=== PATIENT | male | born 1945 | race Caucasian/White ===

== ENCOUNTER 2020-03-23 14:21 | Emergency (ER) | payer MEDICARE, SELFPAY ==
[2020-03-23 14:43] VITALS: BP 100/80; BP 135/79; PULSE 96; RESP 16; TEMP 36.8; O2SAT 99; BMI 26.4
--- NOTE | 2020-03-23 14:50 | XR_ITS ---
EXAMINATION: XR CHEST CLINICAL INFORMATION: Fall, trauma, pain COMPARISON: None TECHNIQUE: 2 views of the chest were obtained. FINDINGS: The lungs are clear. There is no pneumothorax, pleural reaction, airspace consolidation, or effusion. The costophrenic sulci are well-defined. The heart is normal in size. The hilar and mediastinal contours and visualized bony structures are unremarkable. XR/XR chest 2V IMPRESSION: Unremarkable examination.
--- NOTE | 2020-03-23 14:50 | CT_ITS ---
EXAMINATION: CT BRAIN, CT CERVICAL SPINE AND CT FACIAL BONES WITHOUT CONTRAST. CLINICAL INFORMATION: Fall. COMPARISON: None TECHNIQUE: 5 mm thin axial and reformatted 2 mm thin sagittal and coronal images of brain were obtained. 3 mm thin axial and reformatted 1.5 mm thin sagittal and coronal images of facial bones were obtained. 3 mm thin axial and 2 mm thin sagittal and coronal images of cervical spine were obtained. DLP [id number] FINDINGS: Brain: There is no acute intra-axial, extra-axial bleed, masses or midline shift. There is no acute infarction in evolution. The lateral ventricles are symmetrical in size but are mildly prominent. The great to white matter differentiation is maintained. Bone windows reveal no calvarial abnormality. Bilateral paranasal sinuses and mastoid air cells are well-aerated. Facial bones: There is no maxillofacial, nasal or mandibular bone fractures seen. Bilateral TM joints and visualized mandible appears intact. The bony arredondo of paranasal sinuses are intact. The maxillofacial and nasal soft tissues are normal. The bony orbits are intact. There is mild deviation right lamina papyracea inward chest from old injury. Cervical spine: There is mild reversal of cervical lordosis. The vertebral heights and alignment is normal. There is loss of C5-C6 disc height with ventral and posterior spondylosis. There is mild C1-C2 superior spurring as well. The craniovertebral junction is normal. No acute fracture, lytic or sclerotic process seen. CT/CT cervical spine wo con IMPRESSION: No acute intracranial process seen. Age-related cerebral volume loss with chronic small vessel ischemic changes. There is no acute maxillofacial and nasal bone fracture. There is deformity of right lamina papyracea likely old injury. The sinuses are well-aerated and clear. There is no acute fracture or dislocation of cervical spine. There are degenerative disc changes C5-C6 disc level with ventral and posterior spondylosis. There is reversal of cervical lordosis likely spasm..
--- NOTE | 2020-03-23 14:52 | PC.NURSE ---
pt arrives via ems after mechanical fall at home, slipped on floor at top of stairs, down 3-4 steps. pt remembers event, denies having experienced dizziness, sob, chest pain prior to fall. denies LOC. did not relaize he had a lac until after he drove himself from home to nephrology appt. slightly hypotensive with them, all bps wnl with ems and upon arrival. NSR oncardiac monitor. a&ox3, hx parkinsons. speech clear, slightly slowed, visible tremor to R hand. skin pwd, resp even and nonlaboured. PA to bedside. plan to scan head, xrays as well. pt aware of plan for care.
--- NOTE | 2020-03-23 15:18 | PC.NURSE ---
val [phone] DAUGHTER. will be picking him up
--- NOTE | 2020-03-23 15:47 | PC.NURSE ---
PT RETURNED FROM CT CAN WITH NO ISSUES. AWARE OF PLAN FOR CARE.
[2020-03-23] MEDS: Lidocaine HCl 2 % MPF 5 ML VIAL INFILTRATI (16:09)
--- NOTE | 2020-03-23 16:19 | ED_ITS ---
HPI - Fall General Chief Complaint: Fall Stated Complaint: FALL DOWN STEPS,HEAD LAC,+COLLAR,-THINNERS Time Seen by Provider: 03/23/20 16:03 Source: patient Mode of arrival: EMS Limitations: no limitations History of Present Illness HPI Narrative: Patient presents to ED for left forehead laceration. Patient states this morning he was going down 3 stairs and he slipped which caused him to trip and fell onto his left head. Patient denies any dizziness, slurred speech, loss of vision, paralysis of extremities, facial droop, headache, chest pain, abdominal pain, shortness of breath, or weakness before falling. Patient states the stairs were slippery. Patient states he only fell down 3 stairs. Patient denies falling on chest, abdomen, back, or neck. Patient denies any loss of consciousness. Patient states since then no headache, dizziness, nausea, vomiting, blood in stool, vomiting blood, or bloody urine. Patient wanted a director of hotel for follow-up appointment and they noticed left eyebrow laceration, and than they sent him to the ED. Patient states he was aware of laceration, but did not think it needed to be sutured. patient denies loss of consciousness. Related Data Allergies Allergy/AdvReac Type Severity Reaction Status Date / Time No Known Allergies Allergy Verified 03/23/20 14:42 Review of Systems Review of Systems: Yes all other systems are reviewed and are negative Constitutional: Constitutional: Denies anorexia, Denies body ache(s), Denies chills, Denies frequent falls and Denies headache(s) Eyes: Eyes: Reports as per HPI and Reports no additional eye complaints ENT: Reports system reviewed and no additional complaints, except as documented, Reports as per HPI, Denies vertigo, Denies dizziness, Denies dry mouth, Denies headache(s), Denies lip swelling, Denies epistaxis and Denies neck pain Cardiovascular: Cardiovascular: Reports as per HPI, Reports no additional cardiovascular complaints, Denies Abdominal Cramping after Meds, Denies chest pain, Denies chest pain at rest, Denies chest pain with activity, Denies pedal edema, Denies dyspnea on exertion, Denies orthopnea and Denies paroxysmal nocturnal dyspnea Respiratory: Respiratory: Reports as per HPI, Reports no additional respiratory complaints, Denies change in phlegm color, Denies chest congestion, Denies cough, Denies pain on inspiration, Denies pain with cough and Denies dyspnea on exertion Gastrointestinal: Gastrointestinal: Reports as per HPI, Reports no additional gastrointestinal complaints, Denies abdominal pain, Denies belching, Denies melena, Denies hematochezia, Denies tenesmus, Denies change in stool character, Denies coffee ground emesis, Denies GI cramping, Denies early satiety, Denies dyspepsia, Denies heartburn, Denies fecal incontinence, Denies diarrhea, Denies vomiting and Denies hematemesis Genitourinary: Genitourinary: Denies dysuria, Denies flank pain, Denies urinary frequency, Denies urinary incontinence and Denies urinary urgency Musculoskeletal: Musculoskeletal: Reports no additional musculoskeletal complaints, Reports as per HPI, Denies abnormal gait, Denies back pain, Denies myalgias, Denies atrophy, Denies deformity, Denies joint swelling, Denies limited range of motion, Denies loss of height, Denies muscle cramps, Denies muscle weakness, Denies neck pain and Denies numbness Neurologic: Reports system reviewed and no additional complaints, except as documented, Reports as per HPI, Denies abnormal gait, Denies behavioral changes, Denies vertigo, Denies dizziness, Denies frequent falls, Denies headache(s) and Denies numbness Psychiatric: Psychiatric: Reports no additional psychiatric complaints, Reports as per HPI, Denies abnormal sleep pattern, Denies anxiety, Denies behavioral changes, Denies change in appetite and Denies irritability Allergic/Immunologic: Allergic/Immunologic: Denies lip swelling PMFSH Past Medical History Medical History (Updated 03/23/20 @ 17:31 by RACHID Choudhary) Hypertension Parkinson disease Social History Social History Smoking Status: Never smoker Use of substances other than those prescribed or required for medical reasons: No Advance Directives: No Advance Directives Information Provided: No Physical Exam Vital Signs: Vital Signs: Vital Signs Temp Pulse Resp BP Pulse Ox 03/23/20 17:09 97.9 F 83 16 140/80 H 98 03/23/20 14:43 98.3 F 96 16 135/79 99 Body Mass Index 26.4 Const: General: cooperative, healthy appearing, comfortable, no acute distress, well developed, alert and awake Orientation/consciousness: oriented to person, oriented to place, oriented to time and patient oriented x3 HENMT: Other: Positive for left maxillary facial abrasion. Head: Yes normal to inspection, Yes No palpable skull fracture present, No Chávez's sign, No contusion, No cranial bruits, No hematoma, Yes laceration ( Positive for left forehead laceration near Eyebrow), No palpable skull fracture, No raccoon eyes, No scalp tenderness, No Temporal artery tenderness present and No perior bital ecchymosis Ears: hearing grossly normal bilaterally General nose exam: Normal external nose present Face and sinus: Yes normal facial exam Mouth: Normal oral and palatal mucosa present Teeth and gingiva: dentition normal Eyes: General: appearance normal, both eyes and all related structures Neck: Neck: Yes normal visual inspection, Yes full ROM, Yes no lymphadenopathy, Yes no meningeal signs and No tender Chest: Other: negative for any ecchymosis or crepitus. Negative for tenderness Chest palpation & inspection: normal inspection of the chest, normal palpation of entire chest wall and no localized rib tenderness Resp: Effort & Inspection: normal respiratory effort, able to speak in complete sentences, no audible wheezes and no cough Auscultation: clear to auscultation bilaterally, no crackles, no rales, no rhonchi and no wheezes Percussion: percussion normal Cardio: Jugular venous distension: no JVD Heart sounds: S1 normal heart sound present and S2 normal heart sound present GI: Other: negative for any abdominal tenderness or ecchymosis. Bedside fast ultrasound negative for any free fluid to indicate bleeding. Inspection: Yes normal to inspection, No abdominal wall ecchymosis and No distended Palpation (GI): Soft to palpation, not firm, nontender, no guarding and not rigid : General: No CVA tenderness and Yes no CVA tenderness Back/Spine/Pelvis: Other: Negative ecchymosis/tenderness Back: no CVA tenderness, No CVA tenderness and No back tenderness Skin: General skin exam: no rashes or lesions noted Neuro: General: oriented to person, oriented to place, oriented to time, patient oriented x3, gait normal ( gait is at baseline. Patient has Parkinson's), no meningeal signs and CN's II-XI intact bilaterally Extrem: Other: patient has complete range of motion of all extremities. Lower extremities negative for any internal/ external rotation to indicate hip fracture dislocation. Patient able to flex and extend lower extremity without any pain or difficulty. General: Yes normal to inspection and Yes full ROM Psych: Appearance: grossly normal, well kempt and not disheveled Course Reevaluation(s) Reevaluation #1: Presently no labs are indicated. History indicates mechanical fall. Patient was asked multiple times any dizziness, chest pain, headache, abdominal pain, stroke symptoms, or weakness before falling, and patient denied all the symptoms. No medical workup indicated. Patient will be sent for head CT, C-spine, facial CT, and chest x-ray. Time: 16:28 Reevaluation #2: patient head CT, C-spine CT, facial CT, and chest x-ray ne gative for any brain bleed, skull fracture, neck fracture, or any new most /hemothorax or rib fractures. Laceration repaired. Patient then was again Asked any dizziness, headache, chest pain, weakness, abdominal pain, nausea, stroke symptoms, vomiting before falling and patient denies those symptoms. Patient states he just slipped which caused him to trip and fall. Presently no labs or medical workup indicated. patient has tremors at baseline due to Parkinson's disease. Patient is not altered. Patient is alert oriented x3. Negative for any focal deficits Time: 17:19 Procedures Laceration Laceration 1: Site: face ( Left eyebrow) Side (If applicable): left Size (cm): 3 Description: irregular Depth: simple, single layer Local Anesthetic: lidocaine 2% Amount of anesthesia used (mL): 4 Skin layer closed with: nylon Size (cm): 4-0 Number of sutures: 4 MDM - Fall MDM Narrative Medical decision making narrative: mechanical fall. Laceration repair. Discharge Plan Discharge Clinical Impression: Eyebrow laceration, Head injury, acute Patient Disposition: Home, Self-Care Instructions: Head Injury (ED), Facial Laceration (ED) Additional Instructions: Return to the ED for any chest pain, shortness of breath, dizziness, weakness, headache, slurred speech, loss of vision, rectal bleeding, vomiting blood, blood in urine, or any other concerning symptoms. Sutures should be removed in 6 days at PCP or ED. Print Language: Trinidadian
[2020-03-23 17:09] VITALS: BP 140/80; PULSE 83; RESP 16; TEMP 36.6; O2SAT 98
== END 2020-03-23 18:10 | disposition home or self-care (01) ==
PROVIDERS: Emergency Provider Internal Medicine
DX: S01.112A Laceration without foreign body of left eyelid and periocular area, initial encounter (principal); H57.12 Ocular pain, left eye; M94.0 Chondrocostal junction syndrome [Tietze]; W10.9XXA Fall (on) (from) unspecified stairs and steps, initial encounter; Y93.01 Activity, walking, marching and hiking; Y92.9 Unspecified place or not applicable; Y99.9 Unspecified external cause status; Z79.899 Other long term (current) drug therapy; Z23 Encounter for immunization
CPT/HCPCS: 12013; 70450; 70486; 71046; 72125; 90471; 90715; 99284

== ENCOUNTER 2021-05-02 08:12 | Emergency (ER) | payer MEDICARE, SELFPAY ==
--- NOTE | ~2021-05-02 | CT_ITS ---
EXAMINATION: CT CERVICAL SPINE WITHOUT CONTRAST CLINICAL INFORMATION: Fall. Neck injury. COMPARISON: Previous CT of the cervical spine 03/23/2020 TECHNIQUE: Axial images through the cervical spine without contrast. Sagittal and coronal reconstructions on the technologist workstation were performed. Patient dose 305 mCi per centimeter. This CT examination was performed using dose optimization techniques as appropriate, variously including the following: *Automated exposure control *Adjustment of mA and/or kV according to patient size (this includes techniques or standardized protocols for targeted exams where dose is matched to indication/reason for exam; i.e. extremities or head) *Use of iterative reconstruction technique DLP: 305 mGy-cm FINDINGS: There is increased lower cervical and upper thoracic kyphosis. Bone alignment is otherwise normal. There is degenerative disc disease and degenerative spondylosis at C5-C6 and C6-C7. There are degenerative changes at the C1 dens articulation. Prevertebral soft tissues are normal. Visualized lung apices are clear. CT/CT cervical spine wo con IMPRESSION: Increased lower cervical and upper thoracic kyphosis similar to previous exam. Degenerative changes. No fracture or dislocation. Fleischner guidelines were followed.
--- NOTE | ~2021-05-02 | CT_ITS ---
EXAMINATION: CT HEAD WITHOUT CONTRAST CLINICAL INFORMATION: Fall. Head injury. COMPARISON: Previous head CT February 2020 TECHNIQUE: Contiguous axial imaging was performed from the skull base to vertex without intravenous administration of contrast. This CT examination was performed using dose optimization techniques as appropriate, variously including the following: *Automated exposure control *Adjustment of mA and/or kV according to patient size (this includes techniques or standardized protocols for targeted exams where dose is matched to indication/reason for exam; i.e. extremities or head) *Use of iterative reconstruction technique DLP: 750 mGy-cm FINDINGS: There is no evidence of an extra-axial collection. There is no evidence of intra-axial extra-axial hemorrhage. The ventricles and extra-axial CSF spaces are prominent suggestive of mild generalized atrophy. There is nonspecific periventricular white matter disease. No mass, mass effect or infarct is seen. Review of bone windows is normal. No skull fracture is seen. Visualized paranasal sinuses, mastoid air cells and middle ears are clear. There is soft tissue swelling and air in soft tissues overlying the right parietal bone. CT/CT head/brain wo con IMPRESSION: No acute findings. Mild generalized atrophy and nonspecific periventricular white matter disease. Soft tissue swelling and small amount of air in the soft tissues overlying the right parietal bone.
--- NOTE | ~2021-05-02 | XR_ITS ---
EXAMINATION: RIGHT HAND AND WRIST X-RAY CLINICAL INFORMATION: Trauma. Pain and swelling. COMPARISON: None TECHNIQUE: 4 views of the right hand and wrist FINDINGS: Bone alignment is normal. No acute fracture or dislocation is seen. There are small soft tissue well-corticated ossifications adjacent to the dorsal DIP joint of the second finger possibly related to old trauma. There is mild arthritis at the first MCP joint and first LONG-TERM joint. There is soft tissue swelling of the third and fourth fingers. XR/XR hand wrist RT IMPRESSION: Soft tissue swelling of the third and fourth fingers. No acute fracture seen.
[2021-05-02 08:27] VITALS: BP 124/82; PULSE 88; O2SAT 99; BMI 24.3
[2021-05-02 08:29] VITALS: BP 117/80; PULSE 85; RESP 20; TEMP 36.9; O2SAT 95
[2021-05-02 09:17] LABS: Basophils Percent Auto 0.4 % (0-2); Eosinophils Absolute Auto 0.2 X10*3/uL (0.0-0.4); Eosinophils Percent Auto 1.8 % (0-4); Hematocrit 31.1 % (42.0-52.0); Hemoglobin 10.1 g/dl (14.0-18.0); Imm Gran Abs Auto 0.04 X10*3/uL (0.00-0.03); Imm Gran Pct Auto 0.4 % (0.0-0.4); Lymphocytes Absolute Auto 1.4 X10*3/uL (1.2-4.9); Lymphocytes Percent Auto 13.4 % (20-40); MANUAL DIFF FLAG NO; Mean Corpuscular HGB Conc 32.5 g/dl (31.0-36.0); Mean Corpuscular Hemoglobin 31.8 pg (27.0-33.0); Mean Corpuscular Volume 97.8 fL (80.0-98.0); Mean Platelet Volume 8.8 fL (9.4-12.4); Monocytes Absolute Auto 1.1 X10*3/uL (0.1-1.2); Monocytes Percent Auto 9.8 % (2-11); Neutrophils Absolute Auto 7.9 x10*3/uL (2.0-8.3); Neutrophils Percent Auto 74.2 % (45-73); Platelet Count 276 X10*3/uL (160-400); Red Blood Count 3.18 X10*6/uL (4.60-5.80); Red Cell Distribution Width 13.4 % (11.0-16.0); White Blood Count 10.7 X10*3/uL (4.8-10.8)
[2021-05-02 09:22] LABS: INTERNATIONAL NORM RATIO 1.2 (0.9-1.1); Prothrombin Time 14.1 SEC (9.9-13.0)
--- NOTE | 2021-05-02 09:28 | ED.FALL ---
HPI - Fall General Chief Complaint: Fall Stated Complaint: TRIP AND FALL W/LAC FROM SNF Time Seen by Provider: 05/02/21 08:30 Source: patient and EMS Mode of arrival: EMS Limitations: no limitations History of Present Illness HPI Narrative: 75-year-old male with a past medical history of Parkinson's disease and hypertension who is currently residing in a SNF presenting to the ED after he had a trip and fall. He reports that he was walking and just tripped and fell backwards hitting his head. He denies loss of consciousness. He denies being on any blood thinners. He denies any symptoms at this time. Although on exam he is noted to have a laceration to his right posterior/parietal scalp and to his right hand 3rd and 4th digits he has erythema / swelling and tenderness all patient. He reports that the injury to the right hand occurred on when he was at his daughter's house he fell down some steps and he was seen here and he reports he had x-rays of the right hand although when I reviewed the patient's charts I do not see any x-rays. He also reports that he was given antibiotics although I do not see that he was given any antibiotics unless he was seen by his PCP or another urgent Care ER. He denies any symptoms prior to the fall today. He denies any symptoms after the fall. he denies any prolonged down time. He denies any other symptoms complaints or concerns at this time. He has a C-collar in place placed by EMS. Patient reports he is up-to-date on tetanus. complaint: fall Onset (ago): minute(s) ( prior to arrival) Fall from: standing Fall witnessed: yes, by living facility staff Place fall occurred: [facility] Loss of consciousness: none Prolonged down time: no Symptoms prior to fall: none Context: tripped/slipped Location of injury: head Associated symptoms (after fall): denies Related Data Home Medications Medication Instructions Recorded Confirmed amantadine HCl 100 mg tablet 1 tab PO BID 05/02/21 05/02/21 calcitriol 0.25 mcg capsule 1 cap PO DAILY 05/02/21 05/02/21 carbidopa 25 mg-levodopa 100 mg 1 tab PO QID 05/02/21 05/02/21 tablet cephalexin 500 mg capsule 1 cap PO QID 05/02/21 05/02/21 hydrochlorothiazide 25 mg tablet 1 tab PO DAILY 05/02/21 05/02/21 lisinopril 5 mg tablet 1 tab PO DAILY 05/02/21 05/02/21 Previous Rx's Medication Instructions Recorded doxycycline monohydrate 100 mg 100 mg PO BID 10 Days #20 tab 05/02/21 tablet Allergies Allergy/AdvReac Type Severity Reaction Status Date / Time No Known Allergies Allergy Verified 03/23/20 14:42 Review of Systems Review of Systems: Constitutional : No changes in activity, No lethargy, No recent prior head injury, No agitation, No increased fussiness ENT/Mouth : No Ear Pain, No Nasal discharge/drainage Eyes: No Eye Pain, No Swelling, No Redness, No Foreign Body, No Vision Changes Cardiovascular : No Chest Pain, No SOB Respiratory : No Cough Gastrointestinal : No Nausea, No Vomiting, No abdominal Pain Genitourinary : No Dysuria, No Urinary Frequency, No Urinary Incontinence, No Urgency, No Flank Pain Musculoskeletal : + joint pain to right hand/finger, No neck stiffness, No neck/back pain/injury Skin : + skin lacerations to scalp Neuro : No unsteady gait, No Paresthesias, No Loss of Consciousness, No altered mental status, No Headache Yes all other systems are reviewed and are negative [facility] Past Medical History Attestation statement: The following information was validated with the patient. Medical History Hypertension Parkinson disease Social History Social History Advance Directives: Yes Advance Directives on File: Yes Advance Directives Date on File: 05/02/21 Physical Exam Vital Signs: Vital Signs: Last Vital Signs Temp 98.5 F 05/02/21 08:29 Pulse 68 05/02/21 14:00 Resp 14 05/02/21 14:00 BP 147/76 H 05/02/21 14:00 Pulse Ox 99 05/02/21 14:00 BMI result Body Mass Index 24.3 vital signs have been reviewed as normal and appeared to be correct. Blood pressure normal. Heart rate normal. Respiration rate normal. Temperature normal. Oxygen saturation normal. Appearance: Alert. Oriented X3. No acute distress. Head: To the right parietal scalp patient has a 2 cm intermediate laceration no active bleeding or foreign bodies or skull depressions noted on my exam. The rest of the external exam is within normal limits and patient has no tenderness. No Chávez signs noted. No raccoon eyes noted Eyes: PERRLA. EOMI. Conjunctiva and sclera normal. Eyelids normal. ENT: No septal hematoma noted. No hemotympanum noted. EAC normal. TM's Normal. Pharynx normal. Uvula midline. Moist mucous membranes. No trismus noted. No drooling noted. No muffled voice noted. Neck: C-collar in place. Although patient denies any tenderness and mid cervical or paracervical musculature although will not remove C-collar at this time until negative CT scan of cervical spine. Normal inspection. Neck supple. FROM. No adenopathy. Thyroid Normal. No meningeal signs. No neck mass noted. No obvious signs of trauma. Patient is neuro intact bilaterally and distally on all 4 extremities. Reflexes intact bilaterally and distant in all 4 extremities. CVS: Normal heart rate and rhythm. Heart sound normal. Pulses normal throughout. No murmurs/rales/gallops. Respiratory: No respiratory distress. Painless inspiration. Breath sounds normal. No wheezes/rales/rhonchi noted. Chest nontender. No accessory muscle usage noted or decreased air movement noted. No signs of injury. Abdomen: Soft and nontender. Bowel sounds normal in all 4 quadrants. No distention noted. No organomegaly noted. No visible injury noted. Back: No CVA tenderness. Full range of motion noted. No rashes/lesion/induration/fluctuance or signs of infection noted. Skin: Skin warm and dry. Normal skin color. Normal skin turgor. No rashes/lesions/lacerations noted. Extremities: To the right hand 3rd and 4th digits patient has moderate erythema/ soft tissue swelling and limited range of motion questioning cellulitis versus gout. Otherwise all other Extremities exhibit normal range of motion and nontender. no lower extremity edema or calf tenderness is noted. Patient has full range of motion of bilateral hips /bilateral knee/ bilateral ankle and foot joints no obvious deformities or pain on palpation and no obvious ligamentous or tendon injury is noted. Neuro: Oriented X 3. No motor deficit. No sensory deficit. Reflexes normal. No focal neuro deficits noted. Gait not tested at this time as patient has C-collar in place. Vascular: + radial pulses/+ 2 distal pedal pulses/+2 dorsalis pedis b/l. Normal cap refill. No cyanosis noted to upper extremity nails and lower extremity toes nails. Course Course Course Narrative: 8:40am - 75-year-old male with a past medical history of Parkinson's disease and hypertension who is currently residing in a SNF presenting to the ED after he had a trip and fall. He reports that he was walking and just tripped and fell backwards hitting his head. He denies loss of consciousness. He denies being on any blood thinners. He denies any symptoms at this time. Although on exam he is noted to have a laceration to his right posterior/parietal scalp and to his right hand 3rd and 4th digits he has erythema / swelling and tenderness all patient. He reports that the injury to the right hand occurred on when he was at his daughter's house he fell down some steps and he was seen here and he reports he had x-rays of the right hand although when I reviewed the patient's charts I do not see any x-rays. He also reports that he was given antibiotics although I do not see that he was given any antibiotics unless he was seen by his PCP or another urgent Care ER. He denies any symptoms prior to the fall today. He denies any symptoms after the fall. he denies any prolonged down time. He denies any other symptoms complaints or concerns at this time. He has a C-collar in place placed by EMS. Patient reports he is up-to-date on tetanus. Plan: Labs due to patient's possible cellulitis infection to his right hand, CT scan of brain, CT scan of cervical spine and x-ray of the right hand then re-evaluate. Reevaluation(s) Reevaluation #1: - labs reviewed and patient with anemia with RBCs of 3.18 hemoglobin and hematocrit 10.1/31.1. ESR 45. Chloride 115. BUN/ creatinine 44/2.25. CRP 3.89. Otherwise all other labs are within normal limits. Patient negative for COVID. CT scan of brain and cervical spine revealed chronic changes no acute processes were noted. X-ray of right hand/ wrist reveals soft tissue swelling of 3rd and 4th fingers no other acute processes are noted. - When I went back into the room to take off the C-collar the daughter was in the room and she reports that the patient is currently on Keflex 4 times a day that he started yesterday from the urgent care for a cellulitis infection they obtained some samples and she is awaiting for the cultures. She reports that it is much more improved with the erythema and the swelling than it was yesterday after he already took 2 doses of the antibiotics. She is also unsure the patient's kidney function the patient is also unsure of his kidney function. We attempted to call the patient's primary care provider's office to get labs although she was on the phone over an hour and they did not give her any of the labs therefore we will have to admit the patient for MAEGAN I am sure this is his baseline or this is new and the daughter is unsure and so is the patient. Patient and daughter at bedside understand agree this plan. I discussed this case with Funmilayo Dorsey the nurse practitioner the hospitalist and she will be admitting at this time. Time: 12:51 Reevaluation #2: - the daughter was able to get labs by the patient's [facility] and she showed me the patient's creatinine on 09/30/2020 which was 2.20 and a GFR of 29 and a BUN of 32 and creatinine on 04/03/2021 of 1.69 with a GFR of 40 and a BUN of 33 - therefore when I compare the patient's labs it appears that patient is at his baseline and I gave him a L of IV fluids and the patient and daughter really do not want to be admitted despite me already admitting the patient therefore at this time I will discharge them due to the patient is eating and drinking and has follow-up with the PCP and deep fryer assembler therefore will DC home with instructions to return in 5 days for staple removal will add doxycycline for the patient's infection to his right hand cellulitis and to have repeat blood work this week by his PCP/deep fryer assembler. Patient and daughter at bedside understand and agree this plan. Time: 14:34 Procedures Laceration Laceration 1: Site: scalp Side (If applicable): right Size (cm): 3 Description: linear Depth: simple, single layer Pre-repair: wound explored Skin layer closed with: other ( 5 fran placed patient tolerated procedure well no complication) MDM - Fall Medical Records Attestation: I reviewed the patient's medical records. Lab Data Attestation: I reviewed the patient's lab results. Result diagrams: 05/02/21 09:09 05/02/21 09:09 Labs: Lab Results 05/02/21 05/02/21 05/02/21 Range/Units 09:09 09:09 09:09 WBC 10.7 (4.8-10.8) X10*3/uL RBC 3.18 L (4.60-5.80) X10*6/uL Hgb 10.1 L (14.0-18.0) g/dl Hct 31.1 L (42.0-52.0) % MCV 97.8 (80.0-98.0) fL MCH 31.8 (27.0-33.0) pg MCHC 32.5 (31.0-36.0) g/dl RDW 13.4 (11.0-16.0) % Plt Count 276 (160-400) X10*3/uL MPV 8.8 L (9.4-12.4) fL Immature Gran % (Auto) 0.4 (0.0-0.4) % Neut % (Auto) 74.2 H (45-73) % Lymph % (Auto) 13.4 L (20-40) % [place] % (Auto) 9.8 (2-11) % Eos % (Auto) 1.8 (0-4) % Baso % (Auto) 0.4 (0-2) % Lymph # (Auto) 1.4 (1.2-4.9) X10*3/uL [place] # (Auto) 1.1 (0.1-1.2) X10*3/uL Eos # (Auto) 0.2 (0.0-0.4) X10*3/uL Baso # (Auto) 0.0 (0.0-0.2) X10*3/uL Abs Immat Gran (auto) 0.04 H (0.00-0.03) X10*3/uL Absolute Neuts (auto) 7.9 (2.0-8.3) x10*3/uL Absolute Nucleated RBC 0.000 (0.0-0.012) X10*3/uL Nucleated RBC % (auto) 0.0 (0.0-0.2) /100WBC ESR (0-15) MM/HR Hold Purple Top SEE NOTE PT (9.9-13.0) SEC INR (0.9-1.1) Sodium 145 (135-145) mmol/L Potassium 4.3 (3.3-5.1) mmol/L Chloride 115 H (96-108) mmol/L Carbon Dioxide 22 (22-29) mmol/L Anion Gap 12 (12-20) BUN 44 H (9-16) mg/dL Creatinine 2.25 H (0.5-1.4) mg/dL Estim Creat Clear Calc 26.9 Estimated GFR 29 Random Glucose 96 (60-115) mg/dL Lactic Acid (0.5-2.0) mmol/L Calcium 9.3 (8.4-10.2) mg/dL Magnesium 1.8 (1.6-2.6) mg/dL Total Bilirubin 0.6 (0.0-1.0) mg/dL AST 18 (5-37) U/L ALT < 6 (0-40) U/L Alkaline Phosphatase 98 (39-117) U/L C-Reactive Protein 3.89 H (< or = 0.50) mg/dL Total Protein 6.4 L (6.5-8.0) g/dL Albumin 3.6 (3.5-5.0) g/dL COVID-19 ([facility]) (Negative) COVID-19 Clin Com 05/02/21 05/02/21 05/02/21 Range/Units 09:09 10:34 10:42 WBC (4.8-10.8) X10*3/uL RBC (4.60-5.80) X10*6/uL Hgb (14.0-18.0) g/dl Hct (42.0-52.0) % MCV (80.0-98.0) fL MCH (27.0-33.0) pg MCHC (31.0-36.0) g/dl RDW (11.0-16.0) % Plt Count (160-400) X10*3/uL MPV (9.4-12.4) fL Immature Gran % (Auto) (0.0-0.4) % Neut % (Auto) (45-73) % Lymph % (Auto) (20-40) % [place] % (Auto) (2-11) % Eos % (Auto) (0-4) % Baso % (Auto) (0-2) % Lymph # (Auto) (1.2-4.9) X10*3/uL [place] # (Auto) (0.1-1.2) X10*3/uL Eos # (Auto) (0.0-0.4) X10*3/uL Baso # (Auto) (0.0-0.2) X10*3/uL Abs Immat Gran (auto) (0.00-0.03) X10*3/uL Absolute Neuts (auto) (2.0-8.3) x10*3/uL Absolute Nucleated RBC (0.0-0.012) X10*3/uL Nucleated RBC % (auto) (0.0-0.2) /100WBC ESR (0-15) MM/HR Hold Purple Top PT 14.1 H (9.9-13.0) SEC INR 1.2 H (0.9-1.1) Sodium (135-145) mmol/L Potassium (3.3-5.1) mmol/L Chloride (96-108) mmol/L Carbon Dioxide (22-29) mmol/L Anion Gap (12-20) BUN (9-16) mg/dL Creatinine (0.5-1.4) mg/dL Estim Creat Clear Calc Estimated GFR Random Glucose (60-115) mg/dL Lactic Acid 1.0 (0.5-2.0) mmol/L Calcium (8.4-10.2) mg/dL Magnesium (1.6-2.6) mg/dL Total Bilirubin (0.0-1.0) mg/dL AST (5-37) U/L ALT (0-40) U/L Alkaline Phosphatase (39-117) U/L C-Reactive Protein (< or = 0.50) mg/dL Total Protein (6.5-8.0) g/dL Albumin (3.5-5.0) g/dL COVID-19 ([facility]) Negative (Negative) COVID-19 Clin Com See Note 05/02/21 Range/Units Unknown WBC (4.8-10.8) X10*3/uL RBC (4.60-5.80) X10*6/uL Hgb (14.0-18.0) g/dl Hct (42.0-52.0) % MCV (80.0-98.0) fL MCH (27.0-33.0) pg MCHC (31.0-36.0) g/dl RDW (11.0-16.0) % Plt Count (160-400) X10*3/uL MPV (9.4-12.4) fL Immature Gran % (Auto) (0.0-0.4) % Neut % (Auto) (45-73) % Lymph % (Auto) (20-40) % [place] % (Auto) (2-11) % Eos % (Auto) (0-4) % Baso % (Auto) (0-2) % Lymph # (Auto) (1.2-4.9) X10*3/uL [place] # (Auto) (0.1-1.2) X10*3/uL Eos # (Auto) (0.0-0.4) X10*3/uL Baso # (Auto) (0.0-0.2) X10*3/uL Abs Immat Gran (auto) (0.00-0.03) X10*3/uL Absolute Neuts (auto) (2.0-8.3) x10*3/uL Absolute Nucleated RBC (0.0-0.012) X10*3/uL Nucleated RBC % (auto) (0.0-0.2) /100WBC ESR 45 H (0-15) MM/HR Hold Purple Top PT (9.9-13.0) SEC INR (0.9-1.1) Sodium (135-145) mmol/L Potassium (3.3-5.1) mmol/L Chloride (96-108) mmol/L Carbon Dioxide (22-29) mmol/L Anion Gap (12-20) BUN (9-16) mg/dL Creatinine (0.5-1.4) mg/dL Estim Creat Clear Calc Estimated GFR Random Glucose (60-115) mg/dL Lactic Acid (0.5-2.0) mmol/L Calcium (8.4-10.2) mg/dL Magnesium (1.6-2.6) mg/dL Total Bilirubin (0.0-1.0) mg/dL AST (5-37) U/L ALT (0-40) U/L Alkaline Phosphatase (39-117) U/L C-Reactive Protein (< or = 0.50) mg/dL Total Protein (6.5-8.0) g/dL Albumin (3.5-5.0) g/dL COVID-19 ([facility]) (Negative) COVID-19 Clin Com Imaging Data CT scan of brain/cervical spine without contrast: Attestation: I personally reviewed and interpreted this imaging study as follows: Radiologist's impression: FINDINGS: There is no evidence of an extra-axial collection. There is no evidence of intra-axial extra-axial hemorrhage. The ventricles and extra-axial CSF spaces are prominent suggestive of mild generalized atrophy. There is nonspecific periventricular white matter disease. No mass, mass effect or infarct is seen. Review of bone windows is normal. No skull fracture is seen. Visualized paranasal sinuses, mastoid air cells and middle ears are clear. There is soft tissue swelling and air in soft tissues overlying the right parietal bone. ? CT/CT head/brain wo con IMPRESSION: No acute findings. Mild generalized atrophy and nonspecific periventricular white matter disease. Soft tissue swelling and small amount of air in the soft tissues overlying the right parietal bone. FINDINGS: There is increased lower cervical and upper thoracic kyphosis. Bone alignment is otherwise normal. There is degenerative disc disease and degenerative spondylosis at C5-C6 and C6-C7. There are degenerative changes at the C1 dens articulation. Prevertebral soft tissues are normal. Visualized lung apices are clear. CT/CT cervical spine wo con IMPRESSION: Increased lower cervical and upper thoracic kyphosis similar to previous exam. ? Degenerative changes. No fracture or dislocation. ? Fleischner guidelines were followed. right hand/ wrist x-ray: Attestation: I personally reviewed and interpreted this imaging study as follows: Radiologist's impression: FINDINGS: Bone alignment is normal. No acute fracture or dislocation is seen. There are small soft tissue well-corticated ossifications adjacent to the dorsal DIP joint of the second finger possibly related to old trauma. There is mild arthritis at the first MCP joint and first SNF joint. There is soft tissue swelling of the third and fourth fingers. XR/XR hand wrist RT IMPRESSION: Soft tissue swelling of the third and fourth fingers. No acute fracture seen.? Critical Care Time Critical Care Time Critical Care Time: Yes Total Critical Care Time: 60 Attestation: I personally attest to this time spent taking care of the patient Discharge Plan Discharge Clinical Impression: Parkinson disease, Fall, Head injury, Laceration of scalp, Anemia, Cellulitis, CKD (chronic kidney disease) Patient Disposition: Home, Self-Care Instructions: Laceration (ED), Chronic Kidney Disease (ED), Cellulitis (ED), Fall Prevention for Older Adults (ED), Head Injury (ED), Anemia (ED), Warm Compress or Soak (ED) Prescriptions: New doxycycline monohydrate 100 mg tablet 100 mg PO BID 10 Days Qty: 20 RF: 0 No Action amantadine HCl 100 mg tablet 1 tab PO BID RF: 0 cephalexin 500 mg capsule 1 cap PO QID RF: 0 lisinopril 5 mg tablet 1 tab PO DAILY RF: 0 carbidopa-levodopa 25-100 mg tablet 1 tab PO QID RF: 0 hydrochlorothiazide 25 mg tablet 1 tab PO DAILY RF: 0 calcitriol 0.25 mcg capsule 1 cap PO DAILY RF: 0 Referrals: ED Physician,Generic [Emergency Provider] - 2 days (your pcp) Bita Billy PA [Emergency Midlevel Provider] - 5 days (for staple removal) Lis Cho MD [Primary Care Provider] - 2 days Print Language: Japanese
[2021-05-02 09:33] LABS: Alanine Aminotransferase < 6 U/L (0-40); Albumin Level 3.6 g/dL (3.5-5.0); Alkaline Phosphatase 98 U/L (39-117); Anion Gap 12 (12-20); Aspartate Amino Transferase 18 U/L (5-37); Bilirubin Total 0.6 mg/dL (0.0-1.0); Blood Urea Nitrogen 44 mg/dL (9-16); Calcium 9.3 mg/dL (8.4-10.2); Carbon Dioxide 22 mmol/L (22-29); Chloride 115 mmol/L (96-108); Creatinine Clr Calc Pharmacy 26.9; Estimated Glomerular Filt Rate 29; Glucose Random 96 mg/dL (60-115); Magnesium 1.8 mg/dL (1.6-2.6); Potassium 4.3 mmol/L (3.3-5.1); Sodium 145 mmol/L (135-145); Total Protein 6.4 g/dL (6.5-8.0)
[2021-05-02] MEDS: 0.9 % Sodium Chloride 1,000 ML 999 ML IVCONT (10:38)
[2021-05-02 10:49] VITALS: BP 122/71; PULSE 63; RESP 16; O2SAT 100
[2021-05-02 11:11] LABS: COVID-19 Test Negative (Negative)
[2021-05-02 11:13] LABS: C Reactive Protein 3.89 mg/dL (< or = 0.50)
[2021-05-02 11:47] LABS: Erythrocyte Sedimentation Rate 45 MM/HR (0-15)
[2021-05-02] MEDS: Acetaminophen 325 MG TABLET 975 MG PO (12:34)
--- NOTE | 2021-05-02 13:32 | PHA.MEDREC ---
Pharmacy Consult ? Medication Reconciliation Pharmacy has completed the medication reconciliation.
[2021-05-02] MEDS: cefTRIAXone sodium 1 GM in 0.9 % Sodium Chloride 50 ML IV (13:36)
[2021-05-02 14:00] VITALS: BP 147/76; PULSE 68; RESP 14; O2SAT 99
== END 2021-05-02 14:49 | disposition home or self-care (01) ==
PROVIDERS: Physician Assistant Medical; Emergency Provider Emergency Medicine; PCP Internal Medicine
DX: S01.01XA Laceration without foreign body of scalp, initial encounter (principal); G20 Parkinson's disease; I10 Essential (primary) hypertension; L03.113 Cellulitis of right upper limb; D64.9 Anemia, unspecified; W01.10XA Fall on same level from slipping, tripping and stumbling with subsequent striking against unspecified object, initial encounter; Y93.9 Activity, unspecified; Y92.009 Unspecified place in unspecified non-institutional (private) residence as the place of occurrence of the external cause; Y99.9 Unspecified external cause status; Z20.822 Contact with and (suspected) exposure to COVID-19; Z79.899 Other long term (current) drug therapy
CPT/HCPCS: 12002; 36415; 70450; 72125; 73110; 73130; 80053; 83605; 83735; 85025; 85610; 85652; 86140; 87040; 87635; 96361; 96365; 99285; 99291; J0696

== ENCOUNTER 2021-05-22 06:30 | Inpatient (IN) | payer MEDICARE, SELFPAY ==
[2021-05-22] VITALS (8 sets, daily range): BP systolic 72–128; BP diastolic 40–68; PULSE 68–112; RESP 11–20; TEMP 36.6; O2SAT 97–100; BMI 22.8
--- NOTE | ~2021-05-22 | XR_ITS ---
EXAMINATION: XR CHEST CLINICAL INFORMATION: Syncope COMPARISON: March 23, 2020 TECHNIQUE: AP portable view of the chest was obtained. FINDINGS: No significant abnormality is noted involving the heart, lungs, mediastinum, bony thorax or soft tissues. XR/XR chest 1V IMPRESSION: No acute disease.
--- NOTE | 2021-05-22 06:37 | ED_ITS ---
HPI - Syncope General Chief Complaint: Syncope Stated Complaint: SYNC ON TOILET,AMS,-STROKE/HEAD STRIKE,LOW BP72/50 Time Seen by Provider: 05/22/21 06:36 Source: patient Mode of arrival: EMS Limitations: no limitations History of Present Illness MD complaint: loss of consciousness and collapsed Onset (ago): minute(s) -: second(s) Description of event: other (on toilet and collapsed) Prodromal symptoms: other (on toilet ) Witnessed: Yes - by Other (family ) Context: other (using toilet ) Injuries sustained associated with event: none Current symptoms: back to baseline History: other (has done this in past with UTI and infection) Treatments prior to arrival: IV fluids (EMS noted initial BP 70s) Related Data Home Medications Medication Instructions Recorded Confirmed amantadine HCl 100 mg tablet 1 tab PO BID 05/02/21 05/02/21 calcitriol 0.25 mcg capsule 1 cap PO DAILY 05/02/21 05/02/21 carbidopa 25 mg-levodopa 100 mg 1 tab PO QID 05/02/21 05/02/21 tablet cephalexin 500 mg capsule 1 cap PO QID 05/02/21 05/02/21 hydrochlorothiazide 25 mg tablet 1 tab PO DAILY 05/02/21 05/02/21 lisinopril 5 mg tablet 1 tab PO DAILY 05/02/21 05/02/21 Previous Rx's Medication Instructions Recorded doxycycline monohydrate 100 mg 100 mg PO BID 10 Days #20 tab 05/02/21 tablet Allergies Allergy/AdvReac Type Severity Reaction Status Date / Time No Known Allergies Allergy Verified 03/23/20 14:42 Review of Systems Review of Systems: Constitutional : No Weight loss, No Fever, No Chills, No Fatigue, No Malaise ENT/Mouth : No sore throat, No Rhinorrhea Eyes: No Eye Pain, No Swelling, No Redness Cardiovascular : No Chest Pain, No SOB, No Dyspnea on Exertion, No Orthopnea, No Edema, No Palpitations Respiratory : No Cough, No Sputum, No Wheezing Gastrointestinal : No Nausea, No Vomiting, No Diarrhea, No Constipation, No abdominal Pain, No Hematochezia, No Melena Genitourinary : No Dysuria, No Urinary Frequency, No Hematuria, Musculoskeletal : No joint pain, No Myalgias, No Joint Swelling Skin : No Skin Lesions, No rash Neuro : No Weakness, No Numbness, No Dizziness, No Headache, pos syncope Psych : No Anxiety/Panic, No Depression Heme/Lymph: No Bruising, No Bleeding,No Lymphadenopathy Endocrine : No Polyuria, No Polydipsia All other systems reviewed and are negative [facility] Past Medical History Medical History Hypertension Parkinson disease Social History Social History Patient Tobacco Use Status: Former Tobacco user Use of substances other than those prescribed or required for medical reasons: No Advance Directives: No Advance Directives Information Provided: No Advance Directives Date on File: 05/02/21 Physical Exam Vital Signs: Vital Signs: Last Vital Signs Temp 98 F 05/22/21 06:44 Pulse 76 05/22/21 08:54 Resp 18 05/22/21 08:54 BP 102/55 L 05/22/21 08:54 Pulse Ox 98 05/22/21 08:54 BMI result Body Mass Index 22.8 Appearance: Alert. Oriented X3. No acute distress. Responds but somewhat slow to respond Eyes: Pupils equal, round and reactive to light. ENT: Pharynx mildly dry MM Neck: Normal inspection. Neck supple. CVS: tachycardic heart rate and rhythm. Pulses normal. Respiratory: No respiratory distress. Breath sounds normal. Abdomen: Soft and nontender. Skin: Skin warm and dry. Normal skin color. mildly poor skin turgor. Extremities: No lower extremity edema. Neuro: Oriented X 3. No motor deficit. No sensory deficit. Tremors noted Course Course Course Narrative: + orthostatics 117 lying to 91 sitting repeat IVF ordered, UA pending MDM - Syncope Medical Records Medical records narrative: 75 yo male very pleasant here with what sounds like syncopal event on toilet this AM - no injury reported at baseline now and BP up after fluids with EMS - at this time could be vasovagal he denies CP/SOB, he is somewhat slow to respond but he is alert and oriented and neurologically intact - will obtain labs, hydrate, ortho VS, CXR and UA for infection, dispo per results and findings Lab Data Result diagrams: 05/22/21 07:22 05/22/21 07:22 Labs: Lab Results 05/22/21 05/22/21 05/22/21 Range/Units 07:22 07:22 07:22 WBC 13.5 H (4.8-10.8) X10*3/uL RBC 3.01 L (4.60-5.80) X10*6/uL Hgb 9.8 L (14.0-18.0) g/dl Hct 29.9 L (42.0-52.0) % MCV 99.3 H (80.0-98.0) fL MCH 32.6 (27.0-33.0) pg MCHC 32.8 (31.0-36.0) g/dl RDW 14.8 (11.0-16.0) % Plt Count 215 (160-400) X10*3/uL MPV 9.9 (9.4-12.4) fL Immature Gran % (Auto) 0.4 (0.0-0.4) % Neut % (Auto) 77.0 H (45-73) % Lymph % (Auto) 12.9 L (20-40) % [place] % (Auto) 7.8 (2-11) % Eos % (Auto) 1.7 (0-4) % Baso % (Auto) 0.2 (0-2) % Lymph # (Auto) 1.8 (1.2-4.9) X10*3/uL [place] # (Auto) 1.1 (0.1-1.2) X10*3/uL Eos # (Auto) 0.2 (0.0-0.4) X10*3/uL Baso # (Auto) 0.0 (0.0-0.2) X10*3/uL Abs Immat Gran (auto) 0.05 H (0.00-0.03) X10*3/uL Absolute Neuts (auto) 10.4 H (2.0-8.3) x10*3/uL Absolute Nucleated RBC 0.000 (0.0-0.012) X10*3/uL Nucleated RBC % (auto) 0.0 (0.0-0.2) /100WBC Sodium 149 H (135-145) mmol/L Potassium 4.4 (3.3-5.1) mmol/L Chloride 116 H (96-108) mmol/L Carbon Dioxide 22 (22-29) mmol/L Anion Gap 15 (12-20) BUN 93 H D (9-16) mg/dL Creatinine 3.64 H (0.5-1.4) mg/dL Estim Creat Clear Calc 17.7 Estimated GFR 16 Random Glucose 91 (60-115) mg/dL Lactic Acid 1.1 (0.5-2.0) mmol/L Calcium 9.7 (8.4-10.2) mg/dL Magnesium 2.7 H (1.6-2.6) mg/dL Total Bilirubin 0.9 (0.0-1.0) mg/dL Direct Bilirubin 0.5 (0.0-0.5) mg/dL AST 54 H (5-37) U/L ALT 18 (0-40) U/L Alkaline Phosphatase 149 H D (39-117) U/L Troponin I High Sens (<3.5-35.0) ng/L Total Protein 6.7 (6.5-8.0) g/dL Albumin 3.6 (3.5-5.0) g/dL Lipase 62 (8-78) U/L Urine Color Urine Appearance Urine pH (5.0-8.0) Ur Specific [place] (1.005-1.025) Urine Protein (NEG-TRACE) MG/DL Urine Glucose (UA) (NEG) MG/DL Urine Ketones (NEG) MG/DL Urine Blood (NEG) Urine Nitrite (NEG) Ur Leukocyte Esterase (NEG) Urine RBC (0) /HPF Urine WBC (0-4) /HPF Ur Squamous Epith Cells /LPF Ur Renal Epithelial Cell /LPF Urine Bacteria /LPF COVID-19 ([facility]) (Negative) COVID-19 Clin Com 05/22/21 05/22/21 05/22/21 Range/Units 07:22 07:26 08:30 WBC (4.8-10.8) X10*3/uL RBC (4.60-5.80) X10*6/uL Hgb (14.0-18.0) g/dl Hct (42.0-52.0) % MCV (80.0-98.0) fL MCH (27.0-33.0) pg MCHC (31.0-36.0) g/dl RDW (11.0-16.0) % Plt Count (160-400) X10*3/uL MPV (9.4-12.4) fL Immature Gran % (Auto) (0.0-0.4) % Neut % (Auto) (45-73) % Lymph % (Auto) (20-40) % [place] % (Auto) (2-11) % Eos % (Auto) (0-4) % Baso % (Auto) (0-2) % Lymph # (Auto) (1.2-4.9) X10*3/uL [place] # (Auto) (0.1-1.2) X10*3/uL Eos # (Auto) (0.0-0.4) X10*3/uL Baso # (Auto) (0.0-0.2) X10*3/uL Abs Immat Gran (auto) (0.00-0.03) X10*3/uL Absolute Neuts (auto) (2.0-8.3) x10*3/uL Absolute Nucleated RBC (0.0-0.012) X10*3/uL Nucleated RBC % (auto) (0.0-0.2) /100WBC Sodium (135-145) mmol/L Potassium (3.3-5.1) mmol/L Chloride (96-108) mmol/L Carbon Dioxide (22-29) mmol/L Anion Gap (12-20) BUN (9-16) mg/dL Creatinine (0.5-1.4) mg/dL Estim Creat Clear Calc Estimated GFR Random Glucose (60-115) mg/dL Lactic Acid (0.5-2.0) mmol/L Calcium (8.4-10.2) mg/dL Magnesium (1.6-2.6) mg/dL Total Bilirubin (0.0-1.0) mg/dL Direct Bilirubin (0.0-0.5) mg/dL AST (5-37) U/L ALT (0-40) U/L Alkaline Phosphatase (39-117) U/L Troponin I High Sens 12.5 (<3.5-35.0) ng/L Total Protein (6.5-8.0) g/dL Albumin (3.5-5.0) g/dL Lipase (8-78) U/L Urine Color YELLOW Urine Appearance CLEAR Urine pH 6.0 (5.0-8.0) Ur Specific [place] 1.025 (1.005-1.025) Urine Protein TRACE (NEG-TRACE) MG/DL Urine Glucose (UA) NEG (NEG) MG/DL Urine Ketones NEG (NEG) MG/DL Urine Blood TRACE (NEG) Urine Nitrite NEG (NEG) Ur Leukocyte Esterase NEG (NEG) Urine RBC 0 (0) /HPF Urine WBC 1-4 (0-4) /HPF Ur Squamous Epith Cells 1+ /LPF Ur Renal Epithelial Cell TRACE /LPF Urine Bacteria TRACE /LPF COVID-19 ([facility]) Negative (Negative) COVID-19 Clin Com See Note ECG Data Attestation: I personally reviewed and interpreted this ECG as follows: ECG interpretation date: 05/22/21 ECG interpretation time: 07:06 Interpretation: Rate: 76 Rhythm: NSR [place]: normal Normal P waves. Normal KATIE. Normal QRS complex. ST T wave : nonspecific, no COLBY qTC: normal prior studies: no acute ischemia but significant artifact noted The study has been interpreted contemporaneously by me. . Discharge Plan Discharge Clinical Impression: Acute kidney injury superimposed on chronic kidney disease, Acute dehydration, Orthostatic hypotension, Syncope Patient Disposition: Admitted As Inpatient Prescriptions: No Action amantadine HCl 100 mg tablet 1 tab PO BID RF: 0 cephalexin 500 mg capsule 1 cap PO QID RF: 0 lisinopril 5 mg tablet 1 tab PO DAILY RF: 0 carbidopa-levodopa 25-100 mg tablet 1 tab PO QID RF: 0 hydrochlorothiazide 25 mg tablet 1 tab PO DAILY RF: 0 calcitriol 0.25 mcg capsule 1 cap PO DAILY RF: 0 doxycycline monohydrate 100 mg tablet 100 mg PO BID 10 Days Qty: 20 RF: 0
--- NOTE | 2021-05-22 06:46 | ECG_ITS ---
Test Reason : SYNCOPE Blood Pressure : / mmHG Vent. Rate : 076 BPM Atrial Rate : 076 BPM P-R Int : 126 ms QRS Dur : 096 ms QT Int : 398 ms P-R-T Axes : 042 038 001 degrees QTc Int : 447 ms Poor data quality Normal sinus rhythm No previous ECGs available Referred By: Erica Wang Electronically Signed By:Adrián Snow
[2021-05-22 07:28] LABS: MANUAL DIFF FLAG NO
[2021-05-22 07:31] LABS: Basophils Percent Auto 0.2 % (0-2); Eosinophils Absolute Auto 0.2 X10*3/uL (0.0-0.4); Eosinophils Percent Auto 1.7 % (0-4); Hematocrit 29.9 % (42.0-52.0); Hemoglobin 9.8 g/dl (14.0-18.0); Imm Gran Abs Auto 0.05 X10*3/uL (0.00-0.03); Imm Gran Pct Auto 0.4 % (0.0-0.4); Lymphocytes Absolute Auto 1.8 X10*3/uL (1.2-4.9); Lymphocytes Percent Auto 12.9 % (20-40); Mean Corpuscular HGB Conc 32.8 g/dl (31.0-36.0); Mean Corpuscular Hemoglobin 32.6 pg (27.0-33.0); Mean Corpuscular Volume 99.3 fL (80.0-98.0); Mean Platelet Volume 9.9 fL (9.4-12.4); Monocytes Absolute Auto 1.1 X10*3/uL (0.1-1.2); Monocytes Percent Auto 7.8 % (2-11); Neutrophils Absolute Auto 10.4 x10*3/uL (2.0-8.3); Platelet Count 215 X10*3/uL (160-400); Red Blood Count 3.01 X10*6/uL (4.60-5.80); Red Cell Distribution Width 14.8 % (11.0-16.0); White Blood Count 13.5 X10*3/uL (4.8-10.8)
[2021-05-22] MEDS: 0.9 % Sodium Chloride 1,000 ML 999 ML IVCONT (07:39)
[2021-05-22 07:41] LABS: Lactic Acid 1.1 mmol/L (0.5-2.0)
[2021-05-22 07:50] LABS: Troponin-I High Sensitivity 12.5 ng/L (<3.5-35.0)
[2021-05-22 07:50] LABS: COVID-19 Test Negative (Negative)
[2021-05-22 07:59] LABS: Alanine Aminotransferase 18 U/L (0-40); Albumin Level 3.6 g/dL (3.5-5.0); Alkaline Phosphatase 149 U/L (39-117); Anion Gap 15 (12-20); Aspartate Amino Transferase 54 U/L (5-37); Bilirubin Direct 0.5 mg/dL (0.0-0.5); Bilirubin Total 0.9 mg/dL (0.0-1.0); Blood Urea Nitrogen 93 mg/dL (9-16); Calcium 9.7 mg/dL (8.4-10.2); Carbon Dioxide 22 mmol/L (22-29); Chloride 116 mmol/L (96-108); Creatinine Clr Calc Pharmacy 17.7; Estimated Glomerular Filt Rate 16; Glucose Random 91 mg/dL (60-115); Lipase 62 U/L (8-78); Magnesium 2.7 mg/dL (1.6-2.6); Potassium 4.4 mmol/L (3.3-5.1); Sodium 149 mmol/L (135-145); Total Protein 6.7 g/dL (6.5-8.0)
[2021-05-22 08:41] LABS: Appearance Urine CLEAR; Color Urine YELLOW; Glucose Urine UA NEG (NEG); Leukocyte Esterase Urine NEG (NEG); Nitrite Urine NEG (NEG); Specific Gravity - Urine 1.025 (1.005-1.025); UACC Culture Trigger NO; Urine Blood TRACE (NEG); Urine Ketones NEG (NEG); Urine Protein TRACE MG/DL (NEG-TRACE)
[2021-05-22] MEDS: cefTRIAXone sodium 1 GM in 0.9 % Sodium Chloride 50 ML IV (08:44)
[2021-05-22 08:52] LABS: Renal Epithelial Cells Urine TRACE /LPF; Squamous Epithelial Cell Urine 1+ /LPF
[2021-05-22 08:54] LABS: Bacteria Urine TRACE /LPF; RBC Urine 0 /HPF (0)
[2021-05-22] MEDS: 0.9 % Sodium Chloride 1,000 ML 999 ML IV (09:09)
--- NOTE | 2021-05-22 09:51 | PHA.MEDREC ---
Pharmacy Consult ? Medication Reconciliation Pharmacy has completed the medication reconciliation.Pt list in room. Matches claim history.
--- NOTE | 2021-05-22 10:40 | PC.NURSE ---
Spoke to daughter Brandee ([phone]) updated on plan for admission. Pt remains in strecther, fluids infusing but over extended time d/t IV placement and non compliance with arm being straight. Attempted to place jacinto and unable, will reattempt. Skin flushed. Difficult to understand (recent baseline) per daughter but pt oriented x2.
--- NOTE | 2021-05-22 12:17 | PM.IMHP ---
History of Present Illness Date of Service: 05/22/21 Chief Complaint: syncope 75-year-old male presents from home after what is described as a syncopal episode after toileting. Noted to be somewhat confused and not responding appropriately. Per EMS, pre-hospital BP's were consistent with orthostatic hypotension. In the emergency room, his blood pressure responded to IV fluids. A urine was sent given his past history of recurrent UTIs; this revealed active sediment consistent with UTI. he was given 1 g ceftriaxone and a call was placed for admission Review of Systems Review of Systems: denies chest pain signed shortness of breath Denies nausea vomiting PMFSH Medical History Hypertension Parkinson disease Social History Patient Tobacco Use Status: Former Tobacco user Use of substances other than those prescribed or required for medical reasons: No Advance Directives: No Advance Directives Information Provided: No Advance Directives Date on File: 05/02/21 Meds Allergies Allergy/AdvReac Type Severity Reaction Status Date / Time No Known Allergies Allergy Verified 03/23/20 14:42 Active Medications: Current Medications Acetaminophen (Acetaminophen 325 Mg Tablet) 650 mg PO Q6H PRN PRN Reason: Pain, Mild (Pain Scale 1-3) Aspirin (Aspirin Enteric Coated 81 Mg Tablet.Dr) 81 mg PO DAILY [facility] Calcitriol (Calcitriol 0.25 Mcg Capsule) 0.25 mcg PO DAILY [facility] Carbidopa/Levodopa (Carbidopa/Levodopa 25/100 Tablet) 1 tab PO QID [facility] Heparin Sodium (Porcine) (Heparin Sodium,Porcine 5,000 Unit/Ml Vial) 5,000 unit SUBCUT Q8H [facility] Sodium Chloride (Ns) 1,000 mls @ 100 mls/hr IVCONT .Q10H [facility] Lisinopril (Lisinopril 5 Mg Tablet) 5 mg PO DAILY ROSA M; Protocol Multivitamins/Vitamin C (Multivitamin Tablet) 1 tab PO BEDTIME ROSA M Non-Formulary Medication (Amantadine Hcl) 1 tab PO BID [facility] Non-Formulary Medication (Vitamin A-Vitamin C-Vit E-Min) 1 tab PO DAILY [facility] Pharmacy Consult (Consult Rx Perform Med Rec) 1 each MISCELLANE ONCE PRN PRN Reason: Consult order Sodium Chloride (0.9 % Sodium Chloride Flush 3 Ml Syringe) 3 ml IVFLUSH QSHIFT [facility] Home Medications Medication Instructions Recorded Confirmed Last Taken Type amantadine HCl 100 mg tablet 1 tab PO BID 05/02/21 05/22/21 05/01/21 History calcitriol 0.25 mcg capsule 1 cap PO DAILY 05/02/21 05/22/21 05/01/21 History carbidopa 25 mg-levodopa 100 mg 1 tab PO QID 05/02/21 05/22/21 05/01/21 History tablet hydrochlorothiazide 25 mg tablet 1 tab PO DAILY 05/02/21 05/22/21 05/01/21 History lisinopril 5 mg tablet 1 tab PO DAILY 05/02/21 05/22/21 05/01/21 History aspirin 81 mg tablet,delayed 81 mg PO DAILY 05/22/21 05/22/21 Unknown History release multivitamin 1 tab PO BEDTIME 05/22/21 05/22/21 Unknown History vitamin A-vitamin C-vit E-min 1 tab PO DAILY 05/22/21 05/22/21 Unknown History tablet Physical Exam Vital Signs and Narrative: Vital Signs: Last Vital Signs Temp 98 F 05/22/21 06:44 Pulse 73 05/22/21 12:03 Resp 16 05/22/21 12:03 BP 122/67 05/22/21 12:03 Pulse Ox 100 05/22/21 12:03 BMI result Body Mass Index 22.8 Const: Other: awake alert speaking softly but appropriately HENMT: Other: membranes dry oropharynx clear Resp: Other: clear to auscultation bilaterally no rales rhonchi or wheezes Cardio: Other: no S4; positive S1-S2; no S3 is murmurs rubs or gallops GI: Other: soft nontender nondistended with normoactive bowel sounds. No peritoneal signs appreciated Neuro: Other: moves all extremities with equal power. Responds to questions appropriately Extrem: Other: no edema bilaterally Results Labs CBC and Chem 7: 05/22/21 07:22 05/22/21 07:22 Labs: Laboratory Results - last 24 hr 05/22/21 05/22/21 05/22/21 07:22 07:22 07:22 MCV 99.3 H MCH 32.6 MCHC 32.8 RDW 14.8 Plt Count 215 MPV 9.9 Immature Gran % (Auto) 0.4 Neut % (Auto) 77.0 H Lymph % (Auto) 12.[address] [place] % (Auto) 7.8 Eos % (Auto) 1.7 Baso % (Auto) 0.2 Lymph # (Auto) 1.8 [place] # (Auto) 1.1 Eos # (Auto) 0.2 Baso # (Auto) 0.0 Abs Immat Gran (auto) 0.05 H Absolute Neuts (auto) 10.4 H Absolute Nucleated RBC 0.000 Nucleated RBC % (auto) 0.0 Anion Gap 15 Estim Creat Clear Calc 17.7 Estimated GFR 16 Random Glucose 91 Lactic Acid 1.1 Calcium 9.7 Magnesium 2.7 H Total Bilirubin 0.9 Direct Bilirubin 0.5 AST 54 H ALT 18 Alkaline Phosphatase 149 H D Troponin I High Sens Total Protein 6.7 Albumin 3.6 Lipase 62 Urine Color Urine Appearance Urine pH Ur Specific [place] Urine Protein Urine Glucose (UA) Urine Ketones Urine Blood Urine Nitrite Ur Leukocyte Esterase Urine RBC Urine WBC Ur Squamous Epith Cells Ur Renal Epithelial Cell Urine Bacteria COVID-19 ([facility]) COVID-19 [employer] 05/22/21 05/22/21 05/22/21 07:22 07:26 08:30 MCV MCH MCHC RDW Plt Count MPV Immature Gran % (Auto) Neut % (Auto) Lymph % (Auto) [place] % (Auto) Eos % (Auto) Baso % (Auto) Lymph # (Auto) [place] # (Auto) Eos # (Auto) Baso # (Auto) Abs Immat Gran (auto) Absolute Neuts (auto) Absolute Nucleated RBC Nucleated RBC % (auto) Anion Gap Estim Creat Clear Calc Estimated GFR Random Glucose Lactic Acid Calcium Magnesium Total Bilirubin Direct Bilirubin AST ALT Alkaline Phosphatase Troponin I High Sens 12.5 Total Protein Albumin Lipase Urine Color YELLOW Urine Appearance CLEAR Urine pH 6.0 Ur Specific [place] 1.025 Urine Protein TRACE Urine Glucose (UA) NEG Urine Ketones NEG Urine Blood TRACE Urine Nitrite NEG Ur Leukocyte Esterase NEG Urine RBC 0 Urine WBC 1-4 Ur Squamous Epith Cells 1+ Ur Renal Epithelial Cell TRACE Urine Bacteria TRACE COVID-19 ([facility]) Negative COVID-19 [facility] Com See Note Imaging Radiologist's Impressions: Impressions Chest X-Ray 05/22/21 07:50 IMPRESSION: No acute disease. Assessment and Plan (1) Acute kidney injury superimposed on chronic kidney disease: Status: Acute (2) Acute dehydration: Status: Acute (3) Syncope: Qualifiers: Syncope type: unspecified Qualified Code(s): R55 - Syncope and collapse Status: Acute (4) Parkinson disease: Status: Acute 75-year-old male presents after likely syncopal episode while toileting. Received fluids in the ER with improvement in his blood pressure. Urine with active sediment. 1. Syncope likely secondary to dehydration; continue normal saline at 100 an hour Observe on telemetry to rule out arrhythmias 2. Acute on chronic kidney disease Baseline in computer 2.25; now 3.64 Likely secondary to dehydration; follow-up renals along with divalents 3. Parkinson's disease Will continue amantadine and Sinemet as ordered Follow clinically 4, Hypertension Hold thiazide and lisinopril until euvolemic. Add back as appropriate 5. Active urinary sediment Given history of UTIs, will treat empirically with ceftriaxone. Adjust pending cultures Lovenox/full code Quality Stroke Does the patient have a stroke diagnosis?: No VTE Prior VTE?: No VTE Risk Level:: Medical - moderate - high VTE Device Contraindication: Treatment Not Indicated VTE Drug Contraindication: N/A - Med Ordered
[2021-05-22] MEDS: 0.9 % Sodium Chloride 1,000 ML 100 ML IVCONT (13:21)
[2021-05-22] MEDS: Carbidopa/Levodopa 25/100 TABLET 1 TAB PO ×2 (13:21→16:53)
[2021-05-22] MEDS: Heparin Sodium,Porcine 5,000 UNIT/ML VIAL 5000 UNIT SUBCUT (13:22)
[2021-05-23] MEDS: 0.9 % Sodium Chloride 1,000 ML 100 ML IVCONT ×2 (00:49→12:34)
[2021-05-23] MEDS: Multivitamin TABLET 1 TAB PO ×2 (00:52→19:44)
[2021-05-23] MEDS: Heparin Sodium,Porcine 5,000 UNIT/ML VIAL 5000 UNIT SUBCUT ×4 (00:52→19:44)
[2021-05-23] MEDS: Carbidopa/Levodopa 25/100 TABLET 1 TAB PO ×5 (00:52→19:44)
--- NOTE | 2021-05-23 05:05 | PC.NURSE ---
report to ANUP Delaney pt pulled out IV and IV restarted to left FA, NS infusing on pump. pt alert but confused to time and place. pt resisting when touched. pt on monitor Castillo draining yellow urine, pt awaiting for transport to floor.
[2021-05-23 05:57] VITALS: BP 135/65; PULSE 76; RESP 18; TEMP 37; O2SAT 96
[2021-05-23 06:02] VITALS: BMI 19.4
[2021-05-23 07:06] LABS: MANUAL DIFF FLAG NO
[2021-05-23 07:10] LABS: Basophils Percent Auto 0.3 % (0-2); Eosinophils Absolute Auto 0.3 X10*3/uL (0.0-0.4); Eosinophils Percent Auto 1.7 % (0-4); Hematocrit 30.3 % (42.0-52.0); Hemoglobin 9.7 g/dl (14.0-18.0); Imm Gran Abs Auto 0.07 X10*3/uL (0.00-0.03); Imm Gran Pct Auto 0.5 % (0.0-0.4); Lymphocytes Absolute Auto 1.6 X10*3/uL (1.2-4.9); Lymphocytes Percent Auto 11.2 % (20-40); Mean Corpuscular Hemoglobin 32.9 pg (27.0-33.0); Mean Corpuscular Volume 102.7 fL (80.0-98.0); Monocytes Absolute Auto 1.1 X10*3/uL (0.1-1.2); Monocytes Percent Auto 7.4 % (2-11); Neutrophils Absolute Auto 11.6 x10*3/uL (2.0-8.3); Neutrophils Percent Auto 78.9 % (45-73); Platelet Count 200 X10*3/uL (160-400); Red Blood Count 2.95 X10*6/uL (4.60-5.80); White Blood Count 14.7 X10*3/uL (4.8-10.8)
[2021-05-23 07:37] VITALS: BP 123/56; PULSE 91; RESP 18; TEMP 36.8; O2SAT 100
[2021-05-23 07:47] VITALS: BP 123/56; PULSE 91
[2021-05-23] MEDS: cefTRIAXone sodium 1 GM in 0.9 % Sodium Chloride 50 ML IV (07:47)
[2021-05-23] MEDS: lisinopriL 5 MG TABLET PO (07:47)
[2021-05-23] MEDS: Aspirin Enteric Coated 81 MG TABLET.DR PO (07:47)
[2021-05-23] MEDS: amantadine HCL 100 MG CAPSULE PO ×2 (08:09→19:44)
[2021-05-23] MEDS: calcitrioL 0.25 MCG CAPSULE PO (08:09)
[2021-05-23 08:18] LABS: Alanine Aminotransferase 23 U/L (0-40); Albumin Level 3.1 g/dL (3.5-5.0); Alkaline Phosphatase 132 U/L (39-117); Anion Gap 13 (12-20); Aspartate Amino Transferase 49 U/L (5-37); Bilirubin Total 0.7 mg/dL (0.0-1.0); Blood Urea Nitrogen 70 mg/dL (9-16); Calcium 8.8 mg/dL (8.4-10.2); Carbon Dioxide 20 mmol/L (22-29); Chloride 125 mmol/L (96-108); Creatinine Clr Calc Pharmacy 20.3; Estimated Glomerular Filt Rate 23; Glucose Fasting 73 mg/dL (60-99); Potassium 4.2 mmol/L (3.3-5.1); Sodium 154 mmol/L (135-145); Total Protein 5.9 g/dL (6.5-8.0)
--- NOTE | 2021-05-23 08:40 | MHC.CM.PN ---
CM met briefly with Patient, who appeared to be having difficulty with communication (Daughter explains that this is r/t his Parkinsons); CM spoke with Daughter/HCP/Kacey @ [phone], and addressed IMM with her (original will be mailed certified letter to Kacey and a copy has been placed on the chart). Patient lives alone at [facility] receiving maximum care provided there (level 3)and family is securing 24/7 care through [facility]. Home/resume services is the goal for dc and CM has initiated and will follow for dc planning. PCP is Dr. Lis Cho, but family is working on switching Patient to the MD on staff at [facility].
--- NOTE | 2021-05-23 10:09 | P.CDIC_ITS ---
CDI Concurrent Query Documentation Clarification: PHYSICIAN'S DOCUMENTATION REQUEST Date of Query: 05/23/21 1009 Patient Name: Timothy Sneed Admit Date: 05/22/21 Dear Doctor, A review of the medical record indicates additional documentation may be needed. Please review below and update the documentation accordingly. Risk Factors/Clinical Indicators/Treatments LAB FINDINGS: sodium 149 154 H Dehydration, Syncope, MAEGAN IV Fluids Based on the above, could you clarify in the Progress Notes the appropriate diagnosis, if significant, that supports the above abnormalities and additional evaluation, monitoring, and/or treatment rendered: * Hypernatremia or other etilogy of lab findings * Labs indicate a diagnosis of (please specify) * Other * Unable to determine Use of terms such as suspected, likely, concern for, or probable (associated with a specific diagnosis that is being evaluated, monitored, or treated as if it exists) are acceptable and can be coded in the inpatient setting, when doc umented at the time of discharge. Thank you, Ambreen Packer [facility], CDIS Extension: [phone] Please use your independent medical judgment in providing your response. THIS QUERY IS PART OF THE PERMANENT MEDICAL RECORD Provider Response: Other Other Diagnosis: Hypernatremia secondary to dehydration/volume contraction
[2021-05-23] MEDS: hydrOXYzine HCL 25 MG TABLET PO ×2 (12:32→18:17)
--- NOTE | 2021-05-23 14:57 | MHC.CM.PN ---
CM spoke with Daughter/Xenia at [phone], who has indicated that pending PT eval and Patient's progress as UTI clears, STR may be an option, prior to returning to [facility]. CM will follow.
[2021-05-23 15:20] VITALS: BP 118/67; PULSE 73; RESP 20; TEMP 36.8; O2SAT 100
--- NOTE | 2021-05-23 15:52 | HO.PM.IMPN ---
Subjective Subjective Date of Service: 05/23/21 Interval History: Remains confused nonverbal Review of Systems Unable to obtain secondary to confusion Physical Exam Vital Signs: Vital Signs: Last Vital Signs Temp 98.2 F 05/23/21 15:20 Pulse 73 05/23/21 15:20 Resp 20 05/23/21 15:20 BP 118/67 05/23/21 15:20 Pulse Ox 100 05/23/21 15:20 BMI result Body Mass Index 19.4 Const: Other: awake alert speaking softly but appropriately HENMT: Other: membranes dry oropharynx clear Resp: Other: clear to auscultation bilaterally no rales rhonchi or wheezes Cardio: Other: no S4; positive S1-S2; no S3 is murmurs rubs or gallops GI: Other: soft nontender nondistended with normoactive bowel sounds. No peritoneal signs appreciated Neuro: Other: moves all extremities with equal power. Responds to questions appropriately Extrem: Other: no edema bilaterally Objective Data Active Medications Acetaminophen (Acetaminophen 325 Mg Tablet) 650 mg PO Q6H PRN PRN Reason: Pain, Mild (Pain Scale 1-3) Amantadine HCl (Amantadine Hcl 100 Mg Capsule) 100 mg PO BID [facility] Last Admin: 05/23/21 08:09 Dose: 100 mg Documented by: MARJORIE Aspirin (Aspirin Enteric Coated 81 Mg Tablet.) 81 mg PO DAILY [facility] Last Admin: 05/23/21 07:47 Dose: 81 mg Documented by: MARJORIE Calcitriol (Calcitriol 0.25 Mcg Capsule) 0.25 mcg PO DAILY [facility] Last Admin: 05/23/21 08:09 Dose: 0.25 mcg Documented by: MARJORIE Carbidopa/Levodopa (Carbidopa/Levodopa 25/100 Tablet) 1 tab PO QID [facility] Last Admin: 05/23/21 12:32 Dose: 1 tab Documented by: MARJORIE Heparin Sodium (Porcine) (Heparin Sodium,Porcine 5,000 Unit/Ml Vial) 5,000 unit SUBCUT Q8H [facility] Last Admin: 05/23/21 12:32 Dose: 5,000 unit Documented by: MARJORIE Ceftriaxone Sodium 1 gm/ (Sodium Chloride) 50 mls @ 100 mls/hr IV Q24H [facility] Last Infusion: 05/23/21 08:19 Dose: 0 mls/hr Documented by: GODFREY Dextrose/Sodium Chloride (D51/2ns) 1,000 mls @ 100 mls/hr IVCONT .Q10H [facility] M Lisinopril (Lisinopril 5 Mg Tablet) 5 mg PO DAILY ROSA M; Protocol Last Admin: 05/23/21 07:47 Dose: 5 mg Documented by: MARJORIE Multivitamins/Vitamin C (Multivitamin Tablet) 1 tab PO BEDTIME [facility] Last Admin: 05/23/21 00:52 Dose: 1 tab Documented by: LOIS Pharmacy Consult (Consult Rx Perform Med Rec) 1 each MISCELLANE ONCE PRN PRN Reason: Consult order Sodium Chloride (0.9 % Sodium Chloride Flush 3 Ml Syringe) 3 ml IVFLUSH QSHIFT [facility] Last Admin: 05/23/21 07:33 Dose: Not Given Documented by: MARJORIE Non-Admin Reason: IV Running Labs CBC & Chem 7: 05/23/21 06:28 05/23/21 06:28 Labs: Laboratory Results - last 24 hr 05/22/21 05/22/21 05/23/21 07:22 07:22 06:28 WBC 13.5 H 14.7 H MCV 102.7 H MCH 32.9 MCHC 32.0 RDW 15.0 Plt Count 200 MPV 10.0 Immature Gran % (Auto) 0.5 H Neut % (Auto) 78.9 H Lymph % (Auto) 11.2 L [place] % (Auto) 7.4 Eos % (Auto) 1.7 Baso % (Auto) 0.3 Lymph # (Auto) 1.6 [place] # (Auto) 1.1 Eos # (Auto) 0.3 Baso # (Auto) 0.0 Abs Immat Gran (auto) 0.07 H Absolute Neuts (auto) 11.6 H Absolute Nucleated RBC 0.000 Nucleated RBC % (auto) 0.0 Sodium 149 H Anion Gap Creatinine 3.64 H Estim Creat Clear Calc Estimated GFR Fasting Glucose Calcium Total Bilirubin AST ALT Alkaline Phosphatase Total Protein Albumin 05/23/21 06:28 WBC MCV MCH MCHC RDW Plt Count MPV Immature Gran % (Auto) Neut % (Auto) Lymph % (Auto) [place] % (Auto) Eos % (Auto) Baso % (Auto) Lymph # (Auto) [place] # (Auto) Eos # (Auto) Baso # (Auto) Abs Immat Gran (auto) Absolute Neuts (auto) Absolute Nucleated RBC Nucleated RBC % (auto) Sodium 154 H Anion Gap 13 Creatinine 2.70 H Estim Creat Clear Calc 20.3 Estimated GFR 23 Fasting Glucose 73 Calcium 8.8 D Total Bilirubin 0.7 AST 49 H ALT 23 Alkaline Phosphatase 132 H Total Protein 5.9 L Albumin 3.1 L Microbiology Microbiology Results: Microbiology 05/22/21 07:27 Blood Culture - Preliminary Blood - Venous No growth after 24 hours. 05/22/21 07:22 Blood Culture - Preliminary Blood - Venous No growth after 24 hours. Assessment and Plan (1) Acute kidney injury superimposed on chronic kidney disease: Status: Acute (2) Acute dehydration: Status: Acute (3) Parkinson disease: Status: Acute Assessment and Plan: 75-year-old male presents after likely syncopal episode while toileting. Received fluids in the ER with improvement in his blood pressure. Urine with active sediment. 1. Syncope likely secondary to dehydration; continue normal saline at 100 an hour Observe on telemetry to rule out arrhythmias 2. Acute on chronic kidney disease Baseline in computer 2.25; now 3.64 Likely secondary to dehydration; follow-up renals along with divalents 3. Parkinson's disease Will continue amantadine and Sinemet as ordered Follow clinically 4, Hypertension Hold thiazide and lisinopril until euvolemic. Add back as appropriate 5. Active urinary sediment Given history of UTIs, will treat empirically with ceftriaxone. Lovenox Discussed with daughter Xenia Mcnamara .... Wishes father DNR DNI Quality Stroke Does the patient have a stroke diagnosis?: No VTE Prior VTE?: No VTE Risk Level:: Medical - moderate - high VTE Device Contraindication: Treatment Not Indicated VTE Drug Contraindication: N/A - Med Ordered
[2021-05-23] MEDS: Dextrose 5 % and 0.45 % NaCl 1,000 ML 100 ML IVCONT (16:10)
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
[2021-05-23 19:09] VITALS: BP 133/72; PULSE 73; RESP 20; TEMP 36.9; O2SAT 100
[2021-05-23 23:12] VITALS: BP 137/74; PULSE 70; RESP 20; TEMP 37; O2SAT 99
[2021-05-24] VITALS (7 sets, daily range): BP systolic 99–128; BP diastolic 54–75; PULSE 70–85; RESP 17–24; TEMP 36.6–37.4; O2SAT 96–100; BMI 19.4
[2021-05-24] MEDS: Dextrose 5 % and 0.45 % NaCl 1,000 ML 100 ML IVCONT ×2 (01:44→16:25)
[2021-05-24] MEDS: Heparin Sodium,Porcine 5,000 UNIT/ML VIAL 5000 UNIT SUBCUT ×3 (04:53→20:29)
[2021-05-24 07:27] LABS: MANUAL DIFF FLAG NO
[2021-05-24 07:39] LABS: Basophils Percent Auto 0.3 % (0-2); Eosinophils Absolute Auto 0.4 X10*3/uL (0.0-0.4); Eosinophils Percent Auto 3.2 % (0-4); Hematocrit 27.1 % (42.0-52.0); Hemoglobin 8.6 g/dl (14.0-18.0); Imm Gran Abs Auto 0.05 X10*3/uL (0.00-0.03); Imm Gran Pct Auto 0.4 % (0.0-0.4); Lymphocytes Absolute Auto 1.7 X10*3/uL (1.2-4.9); Lymphocytes Percent Auto 14.8 % (20-40); Mean Corpuscular HGB Conc 31.7 g/dl (31.0-36.0); Mean Corpuscular Hemoglobin 31.7 pg (27.0-33.0); Monocytes Percent Auto 8.8 % (2-11); Neutrophils Absolute Auto 8.4 x10*3/uL (2.0-8.3); Neutrophils Percent Auto 72.5 % (45-73); Platelet Count 191 X10*3/uL (160-400); Red Blood Count 2.71 X10*6/uL (4.60-5.80); Red Cell Distribution Width 15.3 % (11.0-16.0); White Blood Count 11.6 X10*3/uL (4.8-10.8)
[2021-05-24] MEDS: lisinopriL 5 MG TABLET PO (08:09)
[2021-05-24] MEDS: cefTRIAXone sodium 1 GM in 0.9 % Sodium Chloride 50 ML IV (08:09)
[2021-05-24 08:10] LABS: Alanine Aminotransferase 15 U/L (0-40); Alkaline Phosphatase 117 U/L (39-117); Anion Gap 12 (12-20); Aspartate Amino Transferase 45 U/L (5-37); Bilirubin Total 0.7 mg/dL (0.0-1.0); Blood Urea Nitrogen 46 mg/dL (9-16); Calcium 8.8 mg/dL (8.4-10.2); Carbon Dioxide 19 mmol/L (22-29); Chloride 126 mmol/L (96-108); Estimated Glomerular Filt Rate 30; Glucose Fasting 99 mg/dL (60-99); Potassium 3.6 mmol/L (3.3-5.1); Sodium 153 mmol/L (135-145); Total Protein 5.4 g/dL (6.5-8.0)
[2021-05-24] MEDS: amantadine HCL 100 MG CAPSULE PO ×2 (08:10→20:29)
[2021-05-24] MEDS: Aspirin Enteric Coated 81 MG TABLET.DR PO (08:10)
[2021-05-24] MEDS: Carbidopa/Levodopa 25/100 TABLET 1 TAB PO ×4 (08:10→20:29)
[2021-05-24] MEDS: calcitrioL 0.25 MCG CAPSULE PO (08:10)
[2021-05-24] MEDS: 0.9 % Sodium Chloride Flush 3 ML SYRINGE IVFLUSH ×2 (08:14→16:25)
--- NOTE | 2021-05-24 11:34 | MHC.CM.PN ---
Per ROUNDS discussion, Patient is not yet medically cleared for dc (Sitter started yesterday r/t attempts to get OOB, Agitation, aggressive/combative toward staff with attempts at redirection, IV Ceftriaxone,PT eval needed when feeling better). STR is the goal for dc, prior to possible return to [facility] with privately paid care for supplement services. CM will follow.
[2021-05-24] MEDS: QUEtiapine Fumarate 25 MG TABLET PO (12:19)
--- NOTE | 2021-05-24 15:26 | HO.PM.IMPN ---
Subjective Subjective Date of Service: 05/24/21 Interval History: No acute issues overnight. Remains confused and slightly agitated Review of Systems Unable to assess secondary to confusion Physical Exam Vital Signs: Vital Signs: Last Vital Signs Temp 98.1 F 05/24/21 11:05 Pulse 75 05/24/21 11:05 Resp 18 05/24/21 11:05 BP 109/62 05/24/21 11:05 Pulse Ox 98 05/24/21 11:05 BMI result Body Mass Index 19.4 Const: Other: awake alert speaking softly but appropriately HENMT: Other: membranes dry oropharynx clear Resp: Other: clear to auscultation bilaterally no rales rhonchi or wheezes Cardio: Other: no S4; positive S1-S2; no S3 is murmurs rubs or gallops GI: Other: soft nontender nondistended with normoactive bowel sounds. No peritoneal signs appreciated Neuro: Other: moves all extremities with equal power. Responds to questions appropriately Extrem: Other: no edema bilaterally Objective Data Active Medications Acetaminophen (Acetaminophen 325 Mg Tablet) 650 mg PO Q6H PRN PRN Reason: Pain, Mild (Pain Scale 1-3) Amantadine HCl (Amantadine Hcl 100 Mg Capsule) 100 mg PO BID [facility] Last Admin: 05/24/21 08:10 Dose: 100 mg Documented by: IRENE Aspirin (Aspirin Enteric Coated 81 Mg Tablet.) 81 mg PO DAILY [facility] Last Admin: 05/24/21 08:10 Dose: 81 mg Documented by: IRENE Calcitriol (Calcitriol 0.25 Mcg Capsule) 0.25 mcg PO DAILY [facility] Last Admin: 05/24/21 08:10 Dose: 0.25 mcg Documented by: IRENE Carbidopa/Levodopa (Carbidopa/Levodopa 25/100 Tablet) 1 tab PO QID [facility] Last Admin: 05/24/21 12:19 Dose: 1 tab Documented by: IRENE Heparin Sodium (Porcine) (Heparin Sodium,Porcine 5,000 Unit/Ml Vial) 5,000 unit SUBCUT Q8H [facility] Last Admin: 05/24/21 12:19 Dose: 5,000 unit Documented by: IRENE Ceftriaxone Sodium 1 gm/ (Sodium Chloride) 50 mls @ 100 mls/hr IV Q24H [facility] Last Infusion: 05/24/21 14:38 Dose: 0 mls/hr Documented by: IRENE Dextrose/Sodium Chloride (D51/2ns) 1,000 mls @ 100 mls/hr IVCONT .Q10H [facility] Last Admin: 05/24/21 01:44 Dose: 100 mls/hr Documented by: ANAMARIA Lisinopril (Lisinopril 5 Mg Tablet) 5 mg PO DAILY [facility]; Protocol Last Admin: 05/24/21 08:09 Dose: 5 mg Documented by: IRENE Multivitamins/Vitamin C (Multivitamin Tablet) 1 tab PO BEDTIME [facility] Last Admin: 05/23/21 19:44 Dose: 1 tab Documented by: ANAMARIA Pharmacy Consult (Consult Rx Perform Med Rec) 1 each MISCELLANE ONCE PRN PRN Reason: Consult order Sodium Chloride (0.9 % Sodium Chloride Flush 3 Ml Syringe) 3 ml IVFLUSH QSHIFT [facility] Last Admin: 05/24/21 08:14 Dose: 3 ml Documented by: IRENE Labs CBC & Chem 7: 05/24/21 06:47 05/24/21 06:47 Labs: Laboratory Results - last 24 hr 05/22/21 05/23/21 05/24/21 07:22 06:28 06:47 MCV 100.0 H MCH 31.7 MCHC 31.7 RDW 15.3 Plt Count 191 MPV 10.0 Immature Gran % (Auto) 0.4 Neut % (Auto) 72.5 Lymph % (Auto) 14.8 L [place] % (Auto) 8.8 Eos % (Auto) 3.2 Baso % (Auto) 0.3 Lymph # (Auto) 1.7 [place] # (Auto) 1.0 Eos # (Auto) 0.4 Baso # (Auto) 0.0 Abs Immat Gran (auto) 0.05 H Absolute Neuts (auto) 8.4 H Absolute Nucleated RBC 0.000 Nucleated RBC % (auto) 0.0 Sodium 149 H 154 H Anion Gap Estim Creat Clear Calc Estimated GFR Fasting Glucose Calcium Total Bilirubin AST ALT Alkaline Phosphatase Total Protein Albumin 05/24/21 06:47 MCV MCH MCHC RDW Plt Count MPV Immature Gran % (Auto) Neut % (Auto) Lymph % (Auto) [place] % (Auto) Eos % (Auto) Baso % (Auto) Lymph # (Auto) [place] # (Auto) Eos # (Auto) Baso # (Auto) Abs Immat Gran (auto) Absolute Neuts (auto) Absolute Nucleated RBC Nucleated RBC % (auto) Sodium 153 H Anion Gap 12 Estim Creat Clear Calc 25.0 Estimated GFR 30 Fasting Glucose 99 D Calcium 8.8 Total Bilirubin 0.7 AST 45 H ALT 15 Alkaline Phosphatase 117 Total Protein 5.4 L Albumin 3.0 L Microbiology Microbiology Results: Microbiology 05/23/21 17:24 Urine Culture - Preliminary Urine Catheterized - Castillo Catheter No growth to date. 05/22/21 07:27 Blood Culture - Preliminary Blood - Venous No growth after 48 hours. 05/22/21 07:22 Blood Culture - Preliminary Blood - Venous No growth after 48 hours. Assessment and Plan (1) Acute kidney injury superimposed on chronic kidney disease: Status: Acute (2) Acute dehydration: Status: Acute (3) Parkinson disease: Status: Acute (4) Hypernatremia: Status: Acute Assessment and Plan: 75-year-old male presents after likely syncopal episode while toileting. Received fluids in the ER with improvement in his blood pressure. Urine with active sediment. 1 Acute on chronic kidney disease Baseline in computer 2.25; now 3.64 Likely secondary to dehydration; follow-up renals along with divalents 2. Parkinson's disease Will continue amantadine and Sinemet as ordered Follow clinically 3, Hypertension Hold thiazide and lisinopril until euvolemic. Add back as appropriate 4. Active urinary sediment Given history of UTIs, will treat empirically with ceftriaxone. Lovenox Discussed with daughter Xenia Mcnamara .... Wishes father DNR DNI Quality Stroke Does the patient have a stroke diagnosis?: No VTE Prior VTE?: No VTE Risk Level:: Medical - moderate - high VTE Device Contraindication: Treatment Not Indicated VTE Drug Contraindication: N/A - Med Ordered
--- NOTE | 2021-05-24 16:05 | MHC.CLN ---
NUTRITION CONSULT FOR SKIN INTEGRITY. STAGE II PRESSURE INJURY TO BILATERAL BUTTOCKS. CHANGING DIET TO 2 GRAM SODIUM DUE TO CKD. ADDING ENSURE BID (700 KCAL, 26 G PROTEIN) TO PROMOTE WOUND HEALING.
[2021-05-24] MEDS: Acetaminophen 325 MG TABLET 650 MG PO (16:29)
[2021-05-24] MEDS: Multivitamin TABLET 1 TAB PO (20:29)
[2021-05-25] MEDS: Dextrose 5 % and 0.45 % NaCl 1,000 ML 100 ML IVCONT ×2 (02:58→17:04)
[2021-05-25 04:00] VITALS: BP 125/65; PULSE 68; RESP 20; TEMP 37.4; O2SAT 94
[2021-05-25] MEDS: Heparin Sodium,Porcine 5,000 UNIT/ML VIAL 5000 UNIT SUBCUT ×2 (05:20→21:01)
[2021-05-25] MEDS: cefTRIAXone sodium 1 GM in 0.9 % Sodium Chloride 50 ML IV (07:36)
[2021-05-25 07:44] VITALS: BP 110/71; PULSE 73
[2021-05-25] MEDS: Aspirin Enteric Coated 81 MG TABLET.DR PO (07:44)
[2021-05-25] MEDS: calcitrioL 0.25 MCG CAPSULE PO (07:44)
[2021-05-25] MEDS: lisinopriL 5 MG TABLET PO (07:44)
[2021-05-25] MEDS: amantadine HCL 100 MG CAPSULE PO ×2 (07:44→21:01)
[2021-05-25] MEDS: Carbidopa/Levodopa 25/100 TABLET 1 TAB PO ×3 (07:45→21:01)
[2021-05-25] MEDS: 0.9 % Sodium Chloride Flush 3 ML SYRINGE IVFLUSH ×2 (07:46→21:01)
[2021-05-25 07:52] VITALS: BP 110/71; PULSE 73; RESP 18; TEMP 36.8; O2SAT 99
[2021-05-25 09:49] LABS: MANUAL DIFF FLAG NO
[2021-05-25 09:52] LABS: Basophils Percent Auto 0.2 % (0-2); Eosinophils Absolute Auto 0.3 X10*3/uL (0.0-0.4); Eosinophils Percent Auto 2.9 % (0-4); Hematocrit 25.4 % (42.0-52.0); Hemoglobin 8.3 g/dl (14.0-18.0); Imm Gran Abs Auto 0.03 X10*3/uL (0.00-0.03); Imm Gran Pct Auto 0.3 % (0.0-0.4); Lymphocytes Percent Auto 18.7 % (20-40); Mean Corpuscular HGB Conc 32.7 g/dl (31.0-36.0); Mean Corpuscular Hemoglobin 32.4 pg (27.0-33.0); Mean Corpuscular Volume 99.2 fL (80.0-98.0); Mean Platelet Volume 9.8 fL (9.4-12.4); Monocytes Absolute Auto 0.9 X10*3/uL (0.1-1.2); Monocytes Percent Auto 8.9 % (2-11); Neutrophils Absolute Auto 7.2 x10*3/uL (2.0-8.3); Platelet Count 184 X10*3/uL (160-400); Red Blood Count 2.56 X10*6/uL (4.60-5.80); Red Cell Distribution Width 15.4 % (11.0-16.0); White Blood Count 10.5 X10*3/uL (4.8-10.8)
[2021-05-25 10:08] LABS: Alanine Aminotransferase 15 U/L (0-40); Alkaline Phosphatase 122 U/L (39-117); Anion Gap 9 (12-20); Aspartate Amino Transferase 60 U/L (5-37); Bilirubin Total 0.8 mg/dL (0.0-1.0); Blood Urea Nitrogen 31 mg/dL (9-16); Calcium 8.5 mg/dL (8.4-10.2); Carbon Dioxide 21 mmol/L (22-29); Chloride 122 mmol/L (96-108); Creatinine Clr Calc Pharmacy 29.3; Estimated Glomerular Filt Rate 35; Glucose Fasting 111 mg/dL (60-99); Potassium 3.5 mmol/L (3.3-5.1); Sodium 148 mmol/L (135-145); Total Protein 5.5 g/dL (6.5-8.0)
[2021-05-25 11:13] VITALS: BP 146/74; PULSE 68; RESP 18; TEMP 36.6; O2SAT 96
--- NOTE | 2021-05-25 14:19 | MHC.CLN ---
F/U INTAKE APPEARS POOR, 0-25%. SEEN BY CLASSROOM MONITOR TODAY WITH DIET CONSISTENCY CHANGE TO PUREE WITH NECTAR THICK LIQUIDS. CONTINUE ENSURE BID FOR CALORIC INTAKE. REVIEW OF WEIGHT HISTORY SHOWS LIKELY WEIGHT ERROR WITH 05/23=59.8 KG, AND 05/22=70.3 KG. CONTINUE TO FOLLOW FOR INTAKE AND SKIN.
--- NOTE | 2021-05-25 15:00 | HO.PM.IMPN ---
Subjective Subjective Date of Service: 05/25/21 Interval History: Agitation improved with Seroquel; still with very limited p.o. intake Review of Systems Unable to obtain secondary to confusion Physical Exam Vital Signs: Vital Signs: Last Vital Signs Temp 97.8 F 05/25/21 11:13 Pulse 68 05/25/21 11:13 Resp 18 05/25/21 11:13 BP 146/74 H 05/25/21 11:13 Pulse Ox 96 05/25/21 11:13 BMI result Body Mass Index 19.4 Const: Other: awake alert speaking softly but appropriately HENMT: Other: membranes dry oropharynx clear Resp: Other: clear to auscultation bilaterally no rales rhonchi or wheezes Cardio: Other: no S4; positive S1-S2; no S3 is murmurs rubs or gallops GI: Other: soft nontender nondistended with normoactive bowel sounds. No peritoneal signs appreciated Neuro: Other: moves all extremities with equal power. Responds to questions appropriately Extrem: Other: no edema bilaterally Objective Data Active Medications Acetaminophen (Acetaminophen 325 Mg Tablet) 650 mg PO Q6H PRN PRN Reason: Pain, Mild (Pain Scale 1-3) Last Admin: 05/24/21 16:29 Dose: 650 mg Documented by: IRENE Amantadine HCl (Amantadine Hcl 100 Mg Capsule) 100 mg PO BID [facility] Last Admin: 05/25/21 07:44 Dose: 100 mg Documented by: ISAIAH Aspirin (Aspirin Enteric Coated 81 Mg Tablet.) 81 mg PO DAILY [facility] Last Admin: 05/25/21 07:44 Dose: 81 mg Documented by: ISAIAH Calcitriol (Calcitriol 0.25 Mcg Capsule) 0.25 mcg PO DAILY [facility] Last Admin: 05/25/21 07:44 Dose: 0.25 mcg Documented by: ISAIAH Carbidopa/Levodopa (Carbidopa/Levodopa 25/100 Tablet) 1 tab PO QID [facility] Last Admin: 05/25/21 13:14 Dose: Not Given Documented by: ISAIAH Non-Admin Reason: Patient Refused Heparin Sodium (Porcine) (Heparin Sodium,Porcine 5,000 Unit/Ml Vial) 5,000 unit SUBCUT Q8H [facility] Last Admin: 05/25/21 13:13 Dose: Not Given Documented by: ISAIAH Non-Admin Reason: Patient Refused Ceftriaxone Sodium 1 gm/ (Sodium Chloride) 50 mls @ 100 mls/hr IV Q24H [facility] Last Infusion: 05/25/21 08:06 Dose: 0 mls/hr Documented by: ISAIAH Dextrose/Sodium Chloride (D51/2ns) 1,000 mls @ 100 mls/hr IVCONT .Q10H [facility] M Last Infusion: 05/25/21 13:17 Dose: 100 mls/hr Documented by: ISAIAH Lisinopril (Lisinopril 5 Mg Tablet) 5 mg PO DAILY [facility]; Protocol Last Admin: 05/25/21 07:44 Dose: 5 mg Documented by: ISAIAH Multivitamins/Vitamin C (Multivitamin Tablet) 1 tab PO BEDTIME [facility] Last Admin: 05/24/21 20:29 Dose: 1 tab Documented by: JANE Pharmacy Consult (Consult Rx Perform Med Rec) 1 each MISCELLANE ONCE PRN PRN Reason: Consult order Sodium Chloride (0.9 % Sodium Chloride Flush 3 Ml Syringe) 3 ml IVFLUSH QSHIFT [facility] Last Admin: 05/25/21 07:46 Dose: 3 ml Documented by: ISAIAH Labs CBC & Chem 7: 05/25/21 09:17 05/25/21 09:17 Labs: Laboratory Results - last 24 hr 05/25/21 05/25/21 09:17 09:17 MCV 99.2 H MCH 32.4 MCHC 32.7 RDW 15.4 Plt Count 184 MPV 9.8 Immature Gran % (Auto) 0.3 Neut % (Auto) 69.0 Lymph % (Auto) 18.7 L [place] % (Auto) 8.9 Eos % (Auto) 2.9 Baso % (Auto) 0.2 Lymph # (Auto) 2.0 [place] # (Auto) 0.9 Eos # (Auto) 0.3 Baso # (Auto) 0.0 Abs Immat Gran (auto) 0.03 Absolute Neuts (auto) 7.2 Absolute Nucleated RBC 0.000 Nucleated RBC % (auto) 0.0 Anion Gap 9 L Estim Creat Clear Calc 29.3 Estimated GFR 35 Fasting Glucose 111 H Calcium 8.5 Total Bilirubin 0.8 AST 60 H ALT 15 Alkaline Phosphatase 122 H Total Protein 5.5 L Albumin 3.0 L Microbiology Microbiology Results: Microbiology 05/23/21 17:24 Urine Culture - Final Urine Catheterized - Castillo Catheter No growth. Assessment and Plan (1) Acute kidney injury superimposed on chronic kidney disease: Status: Acute (2) Acute dehydration: Status: Acute (3) Parkinson disease: Status: Acute Assessment and Plan: 75-year-old male presents after likely syncopal episode while toileting. Received fluids in the ER with improvement in his blood pressure. Urine with active sediment. 1 Acute on chronic kidney disease Baseline in computer 2.25; this a.m. 1.87. Will continue IV fluids follow creatinine/divalents 2. Parkinson's disease Will continue amantadine and Sinemet as ordered Follow clinically 3, Hypertension Hold thiazide and lisinopril until euvolemic. Add back as appropriate 4. Active urinary sediment Urine culture negative. Will DC ceftriaxone Lovenox Discussed with daughter Xenia Mcnamara .... Wishes father DNR DNI. Discharge planning in progress for placement Quality Stroke Does the patient have a stroke diagnosis?: No VTE Prior VTE?: No VTE Risk Level:: Medical - moderate - high VTE Device Contraindication: Treatment Not Indicated VTE Drug Contraindication: N/A - Med Ordered
--- NOTE | 2021-05-25 15:32 | MHC.SL.SWA ---
Speech Pathologist Impression: Oralpharyngeal Dysphagia Risk of Aspiration Due to: Poor PO Intake Dysphasia Diet Status: Downgrade Liquid Consistency and Strategies for Safe Swallow: Liquid Intake Recommendation: [place] Thick Liquid Intake Strategies: Small Sips Solid Food Consistency: Dietary Recommendations: Pureed (NDD1) Additional Modifications to Solid Foods: Oral Medication Intake: Crushed with Puree Compensatory Strategies and Precautions to be Taken for Safe Swallow: Supervision While Eating and Drinking for Safe Swallow: Total Supervision (1:1) Foods to Avoid: Foods with different consistencies, difficult to chew foods. Swallowing Recommended Treatments: Compens. Strategy Educat. Recommendation for Speech: Inpatient Speech Therapy Comment: Pt presents with oralpharyngeal dysphagia due to reduced strength, rom, volitional control of oral mechanism secondary to advanced Parkinson's Disease. Oral phase is characterized by adaptive sucking/suckling of bolus to propel, and difficulty containing thin liquids. Pharyngeal phase is characterized by delay of swallow on all consistencies, reduced laryngeal movement on swallow. Recommend diet consistency DOWNGRADE to PUREE (NDD1) w/ NECTAR Thick Liquids w/ pills CRUSHED in PUREE. PT will need 1-1 Supervision and assistance during meals, with encouragement to eat and drink. CIVIL PREPAREDNESS OFFICER will follow for toleration of diet, reassessment of swallow, advancement of diet as warranted. Diet downgrade recommendation communicated to MD, Nursing, Nutrition by secure text, CIVIL PREPAREDNESS OFFICER entered diet downgrade in orders. Frequency/Duration: CIVIL PREPAREDNESS OFFICER will follow M-F while PT is admitted Date Range for Service Req: Timeline to reassess: Product Marketing Manager Clinican/Clinical Fellow: No Supervisory Statement: I have reviewed and agree with the student/clinical fellow's documentation: N/A Speech Language Pathologist: Lauryn Boles M.A., [facility]-CIVIL PREPAREDNESS OFFICER
[2021-05-25 16:00] VITALS: BP 99/56; PULSE 72; RESP 18; TEMP 36.9; O2SAT 99
[2021-05-25 20:00] VITALS: BP 127/70; PULSE 74; RESP 18; TEMP 37.5; O2SAT 98
[2021-05-25] MEDS: Multivitamin TABLET 1 TAB PO (21:01)
[2021-05-25] MEDS: QUEtiapine Fumarate 25 MG TABLET PO (21:01)
[2021-05-26] VITALS: BP 130/60; PULSE 75; RESP 18; TEMP 37.5; O2SAT 96
[2021-05-26] MEDS: Dextrose 5 % and 0.45 % NaCl 1,000 ML 100 ML IVCONT ×2 (03:51→14:02)
[2021-05-26 04:00] VITALS: BP 113/59; PULSE 79; RESP 18; TEMP 37.7; O2SAT 99
[2021-05-26] MEDS: Heparin Sodium,Porcine 5,000 UNIT/ML VIAL 5000 UNIT SUBCUT ×3 (05:08→19:27)
[2021-05-26 05:31] VITALS: TEMP 38.2
[2021-05-26] MEDS: Acetaminophen Supp 650 MG SUPP.RECT PR (05:59)
[2021-05-26 08:00] VITALS: BP 105/66; PULSE 69; RESP 20; TEMP 37; O2SAT 98
[2021-05-26 10:18] LABS: Anion Gap 7 (12-20); Blood Urea Nitrogen 21 mg/dL (9-16); Calcium 8.3 mg/dL (8.4-10.2); Carbon Dioxide 23 mmol/L (22-29); Chloride 120 mmol/L (96-108); Creatinine Clr Calc Pharmacy 31.6; Estimated Glomerular Filt Rate 39; Glucose Random 121 mg/dL (60-115); Potassium 3.4 mmol/L (3.3-5.1); Sodium 147 mmol/L (135-145)
[2021-05-26 11:12] LABS: Folate 17.1 ng/mL (> or = 4.0); Vitamin B12 642 pg/mL (200-900)
[2021-05-26 11:40] LABS: COVID-19 Test Negative (Negative)
[2021-05-26 11:43] VITALS: BP 101/57; PULSE 65; RESP 20; TEMP 37.3; O2SAT 100
--- NOTE | 2021-05-26 11:45 | PC.NURSE ---
Skin/wound assessment completed. Patient has open wounds to bilateral knees and also some scabs from a fall. Open wounds cleansed with wound cleanser, Woundres gel applied covered with foam dressing. Right great to toenail completely off, Woundres gel applied covered with large bandaid. Barrier cream applied to buttocks and coccyx for redness.
--- NOTE | 2021-05-26 14:34 | P.PNIM_ITS ---
Subjective Subjective Date of Service: 05/26/21 Interval History: Was awake all night but now quite sleepy Had temperature of 100.7 @ 5:30 but none since Review of Systems Review of Systems: Yes Unobtainable due to mental status Physical Exam Vital Signs: Vital Signs: Last Vital Signs Temp 99.1 F 05/26/21 11:43 Pulse 65 05/26/21 11:43 Resp 20 05/26/21 11:43 BP 101/57 L 05/26/21 11:43 Pulse Ox 100 05/26/21 11:43 BMI result Body Mass Index 19.4 Gen: somnolent but arousable HEENT: sclera anicteric, moist mucus membranes Neck: supple Lungs: clear to auscultation bilaterally Heart: regular rate and rhythm, no murmurs Abd: soft, non-tender, non-distended Ext: no edema Skin: warm/well-perfused Neuro: disoriented Psych: impaired insight Objective Data Active Medications Acetaminophen (Acetaminophen 325 Mg Tablet) 650 mg PO Q6H PRN PRN Reason: Pain, Mild (Pain Scale 1-3) Last Admin: 05/24/21 16:29 Dose: 650 mg Documented by: IRENE Amantadine HCl (Amantadine Hcl 100 Mg Capsule) 100 mg PO BID [facility] Last Admin: 05/26/21 10:14 Dose: Not Given Documented by: PIYUSH Non-Admin Reason: lethargy Aspirin (Aspirin Enteric Coated 81 Mg Tablet.) 81 mg PO DAILY [facility] Last Admin: 05/26/21 10:14 Dose: Not Given Documented by: PIYUSH Non-Admin Reason: lethargy Calcitriol (Calcitriol 0.25 Mcg Capsule) 0.25 mcg PO DAILY [facility] Last Admin: 05/26/21 10:14 Dose: Not Given Documented by: PIYUSH Non-Admin Reason: lethargy Carbidopa/Levodopa (Carbidopa/Levodopa 25/100 Tablet) 1 tab PO QID [facility] Last Admin: 05/26/21 14:08 Dose: Not Given Documented by: PIYUSH Non-Admin Reason: pt unable to swallow Heparin Sodium (Porcine) (Heparin Sodium,Porcine 5,000 Unit/Ml Vial) 5,000 unit SUBCUT Q8H [facility] Last Admin: 05/26/21 13:59 Dose: 5,000 unit Documented by: PIYUSH Dextrose/Sodium Chloride (D51/2ns) 1,000 mls @ 100 mls/hr IVCONT .Q10H [facility] Last Admin: 05/26/21 14:02 Dose: 100 mls/hr Documented by: PIYUSH Lisinopril (Lisinopril 5 Mg Tablet) 5 mg PO DAILY [facility]; Protocol Last Admin: 05/26/21 10:14 Dose: Not Given Documented by: PIYUSH Non-Admin Reason: lethargy Multivitamins/Vitamin C (Multivitamin Tablet) 1 tab PO BEDTIME [facility] Last Admin: 05/25/21 21:01 Dose: 1 tab Documented by: DANIKA Pharmacy Consult (Consult Rx Perform Med Rec) 1 each MISCELLANE ONCE PRN PRN Reason: Consult order Quetiapine Fumarate (Quetiapine Fumarate 25 Mg Tablet) 25 mg PO BID [facility] Last Admin: 05/26/21 10:15 Dose: Not Given Documented by: PIYUSH Non-Admin Reason: lethargy Sodium Chloride (0.9 % Sodium Chloride Flush 3 Ml Syringe) 3 ml IVFLUSH QSHIFT [facility] Last Admin: 05/26/21 07:24 Dose: Not Given Documented by: PIYUSH Non-Admin Reason: IV Running Labs CBC & Chem 7: 05/25/21 09:17 05/26/21 09:45 Labs: Laboratory Results - last 24 hr 05/26/21 05/26/21 05/26/21 09:15 09:45 10:15 Anion Gap 7 L Estim Creat Clear Calc 31.6 Estimated GFR 39 Random Glucose 121 H Calcium 8.3 L Vitamin B12 642 Folate 17.1 COVID-19 ([facility]) Negative COVID-19 Clin Com See Note Microbiology Microbiology Results: Microbiology 05/23/21 17:24 Urine Culture - Final Urine Catheterized - Castillo Catheter No growth. Assessment and Plan (1) Acute kidney injury superimposed on chronic kidney disease: Status: Acute (2) Acute dehydration: Status: Acute (3) Parkinson disease: Status: Acute Assessment and Plan: hospital d#4 75yo M with Parkinson's disease admitted after syncopal episode while toileting, MAEGAN/CKD # MAEGAN/CKD3-4 - continue IV fluids + holding antihypertensives, continues to improve # Parkinson's disease with behavioral disturbance - continue amantadine + Sinemet - halve dose of quetiapine due to excess sedation # hyperNa - improving with hypotonic fluid repletion, continue to monitor # HTN - holding HCTZ, resumed lisinopril # VTE ppx - UFH # dispo - STR placement Quality Stroke Does the patient have a stroke diagnosis?: No VTE Prior VTE?: No VTE Risk Level:: Medical - moderate - high VTE Device Contraindication: Treatment Not Indicated VTE Drug Contraindication: N/A - Med Ordered
[2021-05-26] MEDS: Carbidopa/Levodopa 25/100 TABLET 1 TAB PO ×2 (18:20→19:28)
--- NOTE | 2021-05-26 18:53 | MHC.CLN ---
F/U INTAKE CONTINUES POOR, 0-25%. DIET=2 GRAM SODIUM, PUREE, WITH NECTAR THICK LIQUIDS. CONTINUE ENSURE BID FOR CALORIC INTAKE AND WOUND HEALING. CONTINUE TO FOLLOW FOR INTAKE AND WOUND.
[2021-05-26] MEDS: Multivitamin TABLET 1 TAB PO (19:28)
[2021-05-26] MEDS: amantadine HCL 100 MG CAPSULE PO (19:28)
[2021-05-26] MEDS: QUEtiapine Fumarate 25 MG TABLET 12.5 MG PO (19:38)
[2021-05-26 20:00] VITALS: BP 123/58; PULSE 73; RESP 18; TEMP 36.8; O2SAT 100
[2021-05-27] VITALS (7 sets, daily range): BP systolic 102–144; BP diastolic 56–74; PULSE 70–96; RESP 18–20; TEMP 36.8–37.6; O2SAT 93–100
[2021-05-27] MEDS: Heparin Sodium,Porcine 5,000 UNIT/ML VIAL 5000 UNIT SUBCUT ×3 (06:26→20:07)
[2021-05-27 07:51] LABS: Anion Gap 10 (12-20); Blood Urea Nitrogen 18 mg/dL (9-16); Calcium 8.4 mg/dL (8.4-10.2); Carbon Dioxide 20 mmol/L (22-29); Chloride 118 mmol/L (96-108); Creatinine Clr Calc Pharmacy 35.8; Estimated Glomerular Filt Rate 45; Glucose Random 90 mg/dL (60-115); Potassium 3.4 mmol/L (3.3-5.1); Sodium 145 mmol/L (135-145)
[2021-05-27] MEDS: Dextrose 5 % and 0.45 % NaCl 1,000 ML 100 ML IVCONT (09:48)
[2021-05-27] MEDS: QUEtiapine Fumarate 25 MG TABLET 12.5 MG PO (09:49)
[2021-05-27] MEDS: lisinopriL 5 MG TABLET PO (09:49)
[2021-05-27] MEDS: 0.9 % Sodium Chloride Flush 3 ML SYRINGE IVFLUSH ×3 (09:49→20:08)
[2021-05-27] MEDS: Aspirin Enteric Coated 81 MG TABLET.DR PO (09:50)
[2021-05-27] MEDS: amantadine HCL 100 MG CAPSULE PO ×2 (09:50→20:07)
[2021-05-27] MEDS: Carbidopa/Levodopa 25/100 TABLET 1 TAB PO ×2 (09:50→20:07)
--- NOTE | 2021-05-27 10:10 | HO.PM.IMPN ---
Subjective Subjective Date of Service: 05/27/21 Interval History: More awake today though only answers yes/no questions to me. Review of Systems Review of Systems: Yes Unobtainable due to mental status Physical Exam Vital Signs: Vital Signs: Last Vital Signs Temp 99.0 F 05/27/21 08:00 Pulse 82 05/27/21 09:49 Resp 20 05/27/21 08:00 BP 108/60 05/27/21 09:49 Pulse Ox 100 05/27/21 08:00 BMI result Body Mass Index 19.4 Gen: awake, in NAD HEENT: sclera anicteric, moist mucus membranes Neck: supple Lungs: clear to auscultation bilaterally Heart: regular rate and rhythm, no murmurs Abd: soft, non-tender, non-distended Ext: no edema Skin: warm/well-perfused Neuro: disoriented Psych: impaired insight Objective Data Active Medications Acetaminophen (Acetaminophen 325 Mg Tablet) 650 mg PO Q6H PRN PRN Reason: Pain, Mild (Pain Scale 1-3) Last Admin: 05/24/21 16:29 Dose: 650 mg Documented by: IRENE Amantadine HCl (Amantadine Hcl 100 Mg Capsule) 100 mg PO BID [facility] Last Admin: 05/27/21 09:50 Dose: 100 mg Documented by: CORINNA Aspirin (Aspirin Enteric Coated 81 Mg Tablet.) 81 mg PO DAILY [facility] Last Admin: 05/27/21 09:50 Dose: 81 mg Documented by: CORINNA Calcitriol (Calcitriol 0.25 Mcg Capsule) 0.25 mcg PO DAILY [facility] Last Admin: 05/27/21 09:55 Dose: Not Given Documented by: CORINNA Non-Admin Reason: unable to crush Carbidopa/Levodopa (Carbidopa/Levodopa 25/100 Tablet) 1 tab PO QID [facility] Last Admin: 05/27/21 09:50 Dose: 1 tab Documented by: CORINNA Heparin Sodium (Porcine) (Heparin Sodium,Porcine 5,000 Unit/Ml Vial) 5,000 unit SUBCUT Q8H [facility] Last Admin: 05/27/21 06:26 Dose: 5,000 unit Documented by: DA Lisinopril (Lisinopril 5 Mg Tablet) 5 mg PO DAILY [facility]; Protocol Last Admin: 05/27/21 09:49 Dose: 5 mg Documented by: CORINNA Multivitamins/Vitamin C (Multivitamin Tablet) 1 tab PO BEDTIME [facility] Last Admin: 05/26/21 19:28 Dose: 1 tab Documented by: DA Pharmacy Consult (Consult Rx Perform Med Rec) 1 each MISCELLANE ONCE PRN PRN Reason: Consult order Quetiapine Fumarate (Quetiapine Fumarate 25 Mg Tablet) 12.5 mg PO BID [facility] Last Admin: 05/27/21 09:49 Dose: 12.5 mg Documented by: CORINNA Sodium Chloride (0.9 % Sodium Chloride Flush 3 Ml Syringe) 3 ml IVFLUSH QSHIFT [facility] Last Admin: 05/27/21 09:49 Dose: 3 ml Documented by: CORINNA Labs CBC & Chem 7: 05/25/21 09:17 05/27/21 06:54 Labs: Laboratory Results - last 24 hr 05/26/21 05/26/21 05/26/21 09:15 09:45 10:15 Anion Gap 7 L Estim Creat Clear Calc 31.6 Estimated GFR 39 Random Glucose 121 H Calcium 8.3 L Vitamin B12 642 Folate 17.1 COVID-19 ([facility]) Negative COVID-19 Clin Com See Note 05/27/21 06:54 Anion Gap 10 L Estim Creat Clear Calc 35.8 Estimated GFR 45 Random Glucose 90 Calcium 8.4 Vitamin B12 Folate COVID-19 ([facility]) COVID-19 Clin Com Microbiology Microbiology Results: Microbiology 05/22/21 07:27 Blood Culture - Final Blood - Venous No growth after 5 days. 05/22/21 07:22 Blood Culture - Final Blood - Venous No growth after 5 days. 05/26/21 07:03 Blood Culture - Preliminary Blood - Venous No growth after 24 hours. 05/26/21 07:13 Blood Culture - Preliminary Blood - Venous No growth after 24 hours. Assessment and Plan (1) Acute kidney injury superimposed on chronic kidney disease: Status: Acute (2) Acute dehydration: Status: Acute (3) Parkinson disease: Status: Acute Assessment and Plan: hospital d#5 75yo M with advanced Parkinson's disease admitted after syncopal episode while toileting, found to have MAEGAN/CKD # MAEGAN/CKD3 - improved p IV fluid hydration and holding antihypertensives # Parkinson's disease with behavioral disturbance - continue amantadine + Sinemet - halved dose of quetiapine due to excess sedation # hyperNa - resolved after hypotonic fluid repletion, encourage free water intake # HTN - holding HCTZ, resumed lisinopril # VTE ppx - UFH # mild pr/lei malnutrition - Ensure # dispo - STR placement Quality Stroke Does the patient have a stroke diagnosis?: No VTE Prior VTE?: No VTE Risk Level:: Medical - moderate - high VTE Device Contraindication: Treatment Not Indicated VTE Drug Contraindication: N/A - Med Ordered
[2021-05-27] MEDS: Multivitamin TABLET 1 TAB PO (20:07)
[2021-05-28] VITALS (8 sets, daily range): BP systolic 103–148; BP diastolic 57–76; PULSE 74–93; RESP 17–20; TEMP 36.2–37.1; O2SAT 98–100
[2021-05-28] MEDS: Heparin Sodium,Porcine 5,000 UNIT/ML VIAL 5000 UNIT SUBCUT ×3 (04:17→21:35)
[2021-05-28 06:55] LABS: Anion Gap 15 (12-20); Blood Urea Nitrogen 21 mg/dL (9-16); Calcium 8.7 mg/dL (8.4-10.2); Carbon Dioxide 18 mmol/L (22-29); Chloride 119 mmol/L (96-108); Creatinine Clr Calc Pharmacy 34.6; Estimated Glomerular Filt Rate 43; Glucose Random 79 mg/dL (60-115); Potassium 3.5 mmol/L (3.3-5.1); Sodium 148 mmol/L (135-145)
[2021-05-28] MEDS: calcitrioL 0.25 MCG CAPSULE PO (10:17)
[2021-05-28] MEDS: amantadine HCL 100 MG CAPSULE PO ×2 (10:17→21:35)
[2021-05-28] MEDS: Aspirin Enteric Coated 81 MG TABLET.DR PO (10:17)
[2021-05-28] MEDS: 0.9 % Sodium Chloride Flush 3 ML SYRINGE IVFLUSH ×2 (10:17→16:12)
[2021-05-28] MEDS: Carbidopa/Levodopa 25/100 TABLET 1 TAB PO ×4 (10:17→21:35)
[2021-05-28] MEDS: lisinopriL 5 MG TABLET PO (10:18)
--- NOTE | 2021-05-28 12:52 | HO.PM.IMPN ---
Subjective Subjective Date of Service: 05/28/21 Interval History: More awake today Quite confused, unable to obtain ROS Review of Systems Review of Systems: Yes Unobtainable due to mental status Physical Exam Vital Signs: Vital Signs: Last Vital Signs Temp 98.5 F 05/28/21 08:00 Pulse 85 05/28/21 10:18 Resp 18 05/28/21 08:00 BP 114/68 05/28/21 10:18 Pulse Ox 99 05/28/21 08:00 BMI result Body Mass Index 19.4 Gen: awake, in NAD HEENT: sclera anicteric, moist mucus membranes Neck: supple Lungs: clear to auscultation bilaterally Heart: regular rate and rhythm, no murmurs Abd: soft, non-tender, non-distended Ext: no edema Skin: warm/well-perfused Neuro: disoriented Psych: impaired insight Objective Data Active Medications Acetaminophen (Acetaminophen 325 Mg Tablet) 650 mg PO Q6H PRN PRN Reason: Pain, Mild (Pain Scale 1-3) Last Admin: 05/24/21 16:29 Dose: 650 mg Documented by: IRENE Amantadine HCl (Amantadine Hcl 100 Mg Capsule) 100 mg PO BID [facility] Last Admin: 05/28/21 10:17 Dose: 100 mg Documented by: JERAD Aspirin (Aspirin Enteric Coated 81 Mg Tablet.) 81 mg PO DAILY [facility] Last Admin: 05/28/21 10:17 Dose: 81 mg Documented by: JERAD Calcitriol (Calcitriol 0.25 Mcg Capsule) 0.25 mcg PO DAILY [facility] Last Admin: 05/28/21 10:17 Dose: 0.25 mcg Documented by: JERAD Carbidopa/Levodopa (Carbidopa/Levodopa 25/100 Tablet) 1 tab PO QID [facility] Last Admin: 05/28/21 12:35 Dose: 1 tab Documented by: JERAD Heparin Sodium (Porcine) (Heparin Sodium,Porcine 5,000 Unit/Ml Vial) 5,000 unit SUBCUT Q8H [facility] Last Admin: 05/28/21 12:35 Dose: 5,000 unit Documented by: JERAD Lisinopril (Lisinopril 5 Mg Tablet) 5 mg PO DAILY [facility]; Protocol Last Admin: 05/28/21 10:18 Dose: 5 mg Documented by: JERAD Multivitamins/Vitamin C (Multivitamin Tablet) 1 tab PO BEDTIME [facility] Last Admin: 05/27/21 20:07 Dose: 1 tab Documented by: ABDULLAHI Pharmacy Consult (Consult Rx Perform Med Rec) 1 each MISCELLANE ONCE PRN PRN Reason: Consult order Sodium Chloride (0.9 % Sodium Chloride Flush 3 Ml Syringe) 3 ml IVFLUSH QSHIFT [facility] Last Admin: 05/28/21 10:17 Dose: 3 ml Documented by: JERAD Labs CBC & Chem 7: 05/25/21 09:17 05/28/21 06:25 Labs: Laboratory Results - last 24 hr 05/28/21 06:25 Anion Gap 15 Estim Creat Clear Calc 34.6 Estimated GFR 43 Random Glucose 79 Calcium 8.7 Microbiology Microbiology Results: Microbiology 05/26/21 07:03 Blood Culture - Preliminary Blood - Venous No growth after 48 hours. 05/26/21 07:13 Blood Culture - Preliminary Blood - Venous No growth after 48 hours. 05/22/21 07:27 Blood Culture - Final Blood - Venous No growth after 5 days. 05/22/21 07:22 Blood Culture - Final Blood - Venous No growth after 5 days. Assessment and Plan (1) Acute kidney injury superimposed on chronic kidney disease: Status: Acute (2) Acute dehydration: Status: Acute (3) Parkinson disease: Status: Acute Assessment and Plan: hospital d#6 75yo M with advanced Parkinson's disease admitted after syncopal episode while toileting, found to have MAEGAN/CKD # MAEGAN/CKD3 - improved p IV fluid hydration and holding antihypertensives # Parkinson's disease with behavioral disturbance - continue amantadine + Sinemet - d/c'ed quetiapine # hyperNa - encourage free water intake, recheck BMP in am # HTN - holding HCTZ, resumed lisinopril # VTE ppx - UFH # mild pr/lei malnutrition - Ensure # dispo - SNF placement- discussed with daughters yesterday Quality Stroke Does the patient have a stroke diagnosis?: No VTE Prior VTE?: No VTE Risk Level:: Medical - moderate - high VTE Device Contraindication: Treatment Not Indicated VTE Drug Contraindication: N/A - Med Ordered
[2021-05-28] MEDS: Multivitamin TABLET 1 TAB PO (21:35)
[2021-05-29] MEDS: 0.9 % Sodium Chloride Flush 3 ML SYRINGE IVFLUSH ×3 (01:22→19:03)
[2021-05-29 03:51] VITALS: BP 136/67; PULSE 76; RESP 18; TEMP 37.1; O2SAT 98
[2021-05-29] MEDS: Heparin Sodium,Porcine 5,000 UNIT/ML VIAL 5000 UNIT SUBCUT ×3 (05:37→22:32)
[2021-05-29 07:46] LABS: Anion Gap 13 (12-20); Blood Urea Nitrogen 29 mg/dL (9-16); Calcium 8.9 mg/dL (8.4-10.2); Carbon Dioxide 21 mmol/L (22-29); Chloride 120 mmol/L (96-108); Creatinine Clr Calc Pharmacy 35.8; Estimated Glomerular Filt Rate 45; Glucose Random 96 mg/dL (60-115); Potassium 3.6 mmol/L (3.3-5.1); Sodium 150 mmol/L (135-145)
[2021-05-29 07:55] VITALS: BP 110/59; PULSE 76; RESP 19; TEMP 36.8; O2SAT 100
--- NOTE | 2021-05-29 10:29 | P.PNIM_ITS ---
Subjective Subjective Date of Service: 05/29/21 Interval History: No agitation overnight Taking very little PO Unable to obtain ROS Review of Systems Review of Systems: Yes Unobtainable due to mental condition Physical Exam Vital Signs: Vital Signs: Last Vital Signs Temp 98.2 F 05/29/21 07:55 Pulse 76 05/29/21 07:55 Resp 19 05/29/21 07:55 BP 110/59 L 05/29/21 07:55 Pulse Ox 100 05/29/21 07:55 BMI result Body Mass Index 19.4 Gen: awake, in NAD HEENT: sclera anicteric, moist mucus membranes Neck: supple Lungs: clear to auscultation bilaterally Heart: regular rate and rhythm, no murmurs Abd: soft, non-tender, non-distended Ext: no edema Skin: warm/well-perfused Neuro: disoriented, tremor Psych: impaired insight Objective Data Active Medications Acetaminophen (Acetaminophen 325 Mg Tablet) 650 mg PO Q6H PRN PRN Reason: Pain, Mild (Pain Scale 1-3) Last Admin: 05/24/21 16:29 Dose: 650 mg Documented by: IRENE Amantadine HCl (Amantadine Hcl 100 Mg Capsule) 100 mg PO BID [facility] Last Admin: 05/28/21 21:35 Dose: 100 mg Documented by: WON Aspirin (Aspirin Enteric Coated 81 Mg Tablet.) 81 mg PO DAILY [facility] Last Admin: 05/28/21 10:17 Dose: 81 mg Documented by: JERAD Calcitriol (Calcitriol 0.25 Mcg Capsule) 0.25 mcg PO DAILY [facility] Last Admin: 05/28/21 10:17 Dose: 0.25 mcg Documented by: JERAD Carbidopa/Levodopa (Carbidopa/Levodopa 25/100 Tablet) 1 tab PO QID [facility] Last Admin: 05/28/21 21:35 Dose: 1 tab Documented by: WON Heparin Sodium (Porcine) (Heparin Sodium,Porcine 5,000 Unit/Ml Vial) 5,000 unit SUBCUT Q8H [facility] Last Admin: 05/29/21 05:37 Dose: 5,000 unit Documented by: DANIKA Dextrose (D5w) 1,000 mls @ 70 mls/hr IVCONT .[id number] [facility] Stop: 05/30/21 09:02 Lisinopril (Lisinopril 5 Mg Tablet) 5 mg PO DAILY [facility]; Protocol Last Admin: 05/28/21 10:18 Dose: 5 mg Documented by: JERAD Multivitamins/Vitamin C (Multivitamin Tablet) 1 tab PO BEDTIME [facility] Last Admin: 05/28/21 21:35 Dose: 1 tab Documented by: WON Pharmacy Consult (Consult Rx Perform Med Rec) 1 each MISCELLANE ONCE PRN PRN Reason: Consult order Sodium Chloride (0.9 % Sodium Chloride Flush 3 Ml Syringe) 3 ml IVFLUSH QSHIFT [facility] Last Admin: 05/29/21 01:22 Dose: 3 ml Documented by: DANIKA Labs CBC & Chem 7: 05/25/21 09:17 05/29/21 06:53 Labs: Laboratory Results - last 24 hr 05/29/21 06:53 Anion Gap 13 Estim Creat Clear Calc 35.8 Estimated GFR 45 Random Glucose 96 Calcium 8.9 Microbiology Microbiology Results: Microbiology 05/26/21 07:03 Blood Culture - Preliminary Blood - Venous No growth after 48 hours. 05/26/21 07:13 Blood Culture - Preliminary Blood - Venous No growth after 48 hours. Assessment and Plan (1) Acute kidney injury superimposed on chronic kidney disease: Status: Acute (2) Acute dehydration: Status: Acute (3) Parkinson disease: Status: Acute Assessment and Plan: hospital d#7 75yo M with advanced Parkinson's disease admitted after syncopal episode while toileting, found to have MAEGAN/CKD # hyperNa - free water deficit 1.7L- will replete IV over 24hr and recheck BMP in am - encourage PO water intake # MAEGAN/CKD3 - improved p IV fluid hydration and holding antihypertensives # Parkinson's disease with behavioral disturbance - continue amantadine + Sinemet - d/c'ed quetiapine # HTN - holding HCTZ, resumed lisinopril # VTE ppx - UFH # mild pr/lei malnutrition - Ensure # dispo - SNF placement- discussed with daughters yesterday- pending ability to maintain sodium normal without use of IV Quality Stroke Does the patient have a stroke diagnosis?: No VTE Prior VTE?: No VTE Risk Level:: Medical - moderate - high VTE Device Contraindication: Treatment Not Indicated VTE Drug Contraindication: N/A - Med Ordered
[2021-05-29] MEDS: Dextrose 5 % 1,000 ML 70 ML IVCONT (11:00)
[2021-05-29 11:11] VITALS: BP 108/60; PULSE 77; RESP 19; TEMP 36.7; O2SAT 100
[2021-05-29] MEDS: lisinopriL 5 MG TABLET PO (11:29)
[2021-05-29] MEDS: Aspirin Enteric Coated 81 MG TABLET.DR PO (11:29)
[2021-05-29] MEDS: Carbidopa/Levodopa 25/100 TABLET 1 TAB PO ×4 (11:43→22:31)
[2021-05-29] MEDS: amantadine HCL 100 MG CAPSULE PO ×2 (11:43→22:31)
--- NOTE | 2021-05-29 11:56 | MHC.CLN ---
F/U PO INTAKE REMAINS POOR DIET RX: 2GM NA PUREED WITH NT LIQ-RECOMMEND LIBERALIZING DIET TO INCREASE VARIETY/PO PT RECEIVING ENSURE BID TO INCREASE KCALS AND PROVIDES 700KCALS, 40G PROTEIN WILL CHANGE DIET TO REGULAR MONITOR PO INTAKE CLOSELY
[2021-05-29 15:30] VITALS: BP 118/72; PULSE 65; TEMP 36.6; O2SAT 100
--- NOTE | 2021-05-29 16:12 | MHC.SL.SWA ---
Speech Pathologist Impression: Oralpharyngeal Dysphagia Risk of Aspiration Due to: Poor PO Intake Dysphasia Diet Status: Downgrade Liquid Consistency and Strategies for Safe Swallow: Liquid Intake Recommendation: Glide Thick Liquid Intake Strategies: Small Sips Solid Food Consistency: Dietary Recommendations: Pureed (NDD1) Additional Modifications to Solid Foods: Oral Medication Intake: Crushed with Puree Compensatory Strategies and Precautions to be Taken for Safe Swallow: Sitting Upright (90 deg) No Straw Liquids from Spoon Alternate Liquids/Solids Oral Check Supervision While Eating and Drinking for Safe Swallow: Total Supervision (1:1) Foods to Avoid: Foods with different consistencies, difficult to chew foods. Swallowing Recommended Treatments: Compens. Strategy Educat. Recommendation for Speech: Inpatient Speech Therapy Comment: Pt presents with oralpharyngeal dysphagia due to reduced strength, rom, volitional control of oral mechanism secondary to advanced Parkinson's Disease. On 05/29: Pt seen today to re-assess swallow. On tsps puree consistency, Pt had prolonged oral phase, followed by swallow trigger with good elevation of larynx on swallow. On nectar thick liquids by tsp, Pt had prolonged oral phase, followed by pharyngeal/swallow phase that was wnl. Pt reportedly has been eating, but generally small amounts per meal. Pt anxious to be D/C'd from hospital. Given prolonged oral phase, Recommend continue on PUREE (NDD1) with NECTAR THICK liquids, w/ Close 1-1 supervision and assist during meals, with monitor for aspiration signs, with encouragement to eat and drink. CREW CLERK will follow for toleration of diet, reassessment of swallow, advancement of diet as warranted. Frequency/Duration: CREW CLERK will follow M-F while PT is admitted Date Range for Service Req: Timeline to reassess: Refuse Collector Clinican/Clinical Fellow: No Supervisory Statement: I have reviewed and agree with the student/clinical fellow's documentation: N/A Speech Language Pathologist: Lauryn Boles M.A., CCC-CREW CLERK
[2021-05-29 19:55] VITALS: BP 139/65; PULSE 73; RESP 16; TEMP 36.6; O2SAT 97
[2021-05-29] MEDS: Multivitamin TABLET 1 TAB PO (22:31)
[2021-05-29 23:37] VITALS: BP 100/57; PULSE 76; RESP 18; TEMP 36.6; O2SAT 9
[2021-05-30 04:00] VITALS: BP 106/57; PULSE 73; RESP 18; TEMP 36.7; O2SAT 100
[2021-05-30] MEDS: Heparin Sodium,Porcine 5,000 UNIT/ML VIAL 5000 UNIT SUBCUT ×3 (05:59→22:03)
[2021-05-30 06:51] LABS: Anion Gap 12 (12-20); Blood Urea Nitrogen 33 mg/dL (9-16); Carbon Dioxide 21 mmol/L (22-29); Chloride 119 mmol/L (96-108); Creatinine Clr Calc Pharmacy 32.2; Estimated Glomerular Filt Rate 40; Glucose Random 104 mg/dL (60-115); Potassium 3.6 mmol/L (3.3-5.1); Sodium 148 mmol/L (135-145)
[2021-05-30 07:27] VITALS: BP 106/57; PULSE 71; RESP 18; TEMP 36.9; O2SAT 100
[2021-05-30] MEDS: 0.9 % Sodium Chloride Flush 3 ML SYRINGE IVFLUSH ×3 (10:15→22:04)
[2021-05-30] MEDS: Carbidopa/Levodopa 25/100 TABLET 1 TAB PO ×4 (10:15→22:04)
[2021-05-30] MEDS: amantadine HCL 100 MG CAPSULE PO ×2 (10:15→22:04)
[2021-05-30] MEDS: lisinopriL 5 MG TABLET PO (10:15)
[2021-05-30] MEDS: Aspirin Enteric Coated 81 MG TABLET.DR PO (10:15)
[2021-05-30 11:17] VITALS: BP 100/58; PULSE 73; RESP 16; TEMP 36.7; O2SAT 99
[2021-05-30] MEDS: Dextrose 5 % 1,000 ML 75 ML IVCONT (11:41)
--- NOTE | 2021-05-30 12:29 | MHC.CM.PN ---
CM spoke with Daughter/Cory at [phone], and provided her with a dc planning update.Per ROUNDS discussion, Patient appears more awake today and MD has ordered a PT re-eval. STR at [facility] is the goal and SEMAJ will continue to follow.
[2021-05-30 15:08] VITALS: BP 104/58; PULSE 71; RESP 20; TEMP 36.4; O2SAT 99
--- NOTE | 2021-05-30 16:11 | HO.PM.IMPN ---
Subjective Subjective Date of Service: 05/30/21 Interval History: Patient awake alert and asking when can he leave, offers no acute complaints of pain, no overnight issues, sodium 148 this morning. Review of Systems Review of Systems: Yes all other systems are reviewed and are negative Physical Exam Vital Signs: Vital Signs: Last Vital Signs Temp 97.5 F 05/30/21 15:08 Pulse 71 05/30/21 15:08 Resp 20 05/30/21 15:08 BP 104/58 L 05/30/21 15:08 Pulse Ox 99 05/30/21 15:08 BMI result Body Mass Index 19.4 Gen: awake, alert in NAD HEENT: sclera anicteric, moist mucus membranes Neck: supple, no JVD Lungs: clear to auscultation bilaterally Heart: regular rate and rhythm, no murmurs Abd: soft, non-tender, non-distended Ext: no edema Skin: warm/well-perfused Neuro: Awake alert answering questions appropriately Psych: No behavioral issues Objective Data Active Medications Acetaminophen (Acetaminophen 325 Mg Tablet) 650 mg PO Q6H PRN PRN Reason: Pain, Mild (Pain Scale 1-3) Last Admin: 05/24/21 16:29 Dose: 650 mg Documented by: IRENE Amantadine HCl (Amantadine Hcl 100 Mg Capsule) 100 mg PO BID [facility] Last Admin: 05/30/21 10:15 Dose: 100 mg Documented by: CORINNA Aspirin (Aspirin Enteric Coated 81 Mg Tablet.) 81 mg PO DAILY [facility] Last Admin: 05/30/21 10:15 Dose: 81 mg Documented by: CORINNA Calcitriol (Calcitriol 0.25 Mcg Capsule) 0.25 mcg PO DAILY [facility] Last Admin: 05/30/21 10:15 Dose: Not Given Documented by: CORINNA Non-Admin Reason: cannot crush Carbidopa/Levodopa (Carbidopa/Levodopa 25/100 Tablet) 1 tab PO QID [facility] Last Admin: 05/30/21 13:12 Dose: 1 tab Documented by: CORINNA Heparin Sodium (Porcine) (Heparin Sodium,Porcine 5,000 Unit/Ml Vial) 5,000 unit SUBCUT Q8H [facility] Last Admin: 05/30/21 13:12 Dose: 5,000 unit Documented by: CORINNA Dextrose (D5w) 1,000 mls @ 75 mls/hr IVCONT .[id number] [facility] Last Admin: 05/30/21 11:41 Dose: 75 mls/hr Documented by: CORINNA Lisinopril (Lisinopril 5 Mg Tablet) 5 mg PO DAILY [facility]; Protocol Last Admin: 05/30/21 10:15 Dose: 5 mg Documented by: CORINNA Multivitamins/Vitamin C (Multivitamin Tablet) 1 tab PO BEDTIME [facility] Last Admin: 05/29/21 22:31 Dose: 1 tab Documented by: JAYDA Pharmacy Consult (Consult Rx Perform Med Rec) 1 each MISCELLANE ONCE PRN PRN Reason: Consult order Sodium Chloride (0.9 % Sodium Chloride Flush 3 Ml Syringe) 3 ml IVFLUSH QSHIFT [facility] Last Admin: 05/30/21 10:15 Dose: 3 ml Documented by: CORINNA Labs CBC & Chem 7: 05/25/21 09:17 05/30/21 06:11 Labs: Laboratory Results - last 24 hr 05/30/21 06:11 Anion Gap 12 Estim Creat Clear Calc 32.2 Estimated GFR 40 Random Glucose 104 Calcium 9.0 Assessment and Plan (1) Hypernatremia: Status: Acute (2) Acute kidney injury superimposed on chronic kidney disease: Status: Acute (3) Hypertension: Status: Acute (4) Parkinson disease: Status: Acute Assessment and Plan: hospital d#8 75yo M with advanced Parkinson's disease admitted after syncopal episode while toileting, found to have MAEGAN/CKD # hyperNa - persistent hypernatremia Na 148 ,will give IVF and recheck BMP in am - encourage PO water intake # MAEGAN/CKD3 - improved but creatinine remains elevated, DC Zestril, give IV fluids follow BMP # Parkinson's disease with behavioral disturbance - continue amantadine + Sinemet No behavioral issues in last 24 hours, Seroquel discontinued # HTN - soft BP, DC lisinopril # VTE ppx - UFH # mild pr/lei malnutrition - continue Ensure # dispo - SNF placement-social media strategist making arrangement for placement Quality Stroke Does the patient have a stroke diagnosis?: No VTE Prior VTE?: No VTE Risk Level:: Medical - moderate - high VTE Device Contraindication: Treatment Not Indicated VTE Drug Contraindication: N/A - Med Ordered
--- NOTE | 2021-05-30 16:33 | MHC.SL.SWA ---
Speech Pathologist Impression: Oralpharyngeal Dysphagia Risk of Aspiration Due to: Poor PO Intake Dysphasia Diet Status: Downgrade Liquid Consistency and Strategies for Safe Swallow: Liquid Intake Recommendation: [place] Thick Liquid Intake Strategies: Small Sips Solid Food Consistency: Dietary Recommendations: Pureed (NDD1) Additional Modifications to Solid Foods: Oral Medication Intake: Crushed with Puree Compensatory Strategies and Precautions to be Taken for Safe Swallow: Sitting Upright (90 deg) No Straw Liquids from Spoon Alternate Liquids/Solids Oral Check Supervision While Eating and Drinking for Safe Swallow: Total Supervision (1:1) Foods to Avoid: Foods with different consistencies, difficult to chew foods. Swallowing Recommended Treatments: Compens. Strategy Educat. Recommendation for Speech: Inpatient Speech Therapy Comment: Pt presents with oralpharyngeal dysphagia due to reduced strength, rom, volitional control of oral mechanism secondary to advanced Parkinson's Disease. On 05/30: Pt seen today to re-assess swallow. On multiple presentations of puree consistency, Pt had prolonged oral phase, followed by swallow trigger with good elevation of larynx on swallow. On multiple presentations of nectar thick liquids by tsp, Pt had prolonged oral phase, followed by pharyngeal/swallow phase that was wnl. Pt has had chronically poor PO intake. Discussed w/ Pt who stated he often does not feel like eating, may not like food presented. Pt stated that puddings, jello, apple sauce are o.k., but is averse to other foods, particularly chicken. Pt encouraged to eat items on tray that he prefers, even if main meal is not appetizing to him. Recommend continue on PUREE (NDD1) with [place] THICK liquids, w/ Close 1-1 supervision and assist during meals, and encouragement to eat, with monitor for aspiration signs. Frequency/Duration: DESULFURIZER OPERATOR will follow M-F while PT is admitted Date Range for Service Req: Timeline to reassess: Environmental Permitting Specialist Clinican/Clinical Fellow: No Supervisory Statement: I have reviewed and agree with the student/clinical fellow's documentation: N/A Speech Language Pathologist: Lauryn Boles M.A., [facility]DESULFURIZER OPERATOR
[2021-05-30 19:17] VITALS: BP 101/52; PULSE 78; RESP 20; TEMP 36.4; O2SAT 96
[2021-05-30] MEDS: Multivitamin TABLET 1 TAB PO (22:04)
[2021-05-30 23:39] VITALS: BP 125/69; PULSE 76; RESP 18; TEMP 37; O2SAT 96
[2021-05-31] MEDS: Dextrose 5 % 1,000 ML 75 ML IVCONT (00:06)
[2021-05-31 04:00] VITALS: BP 116/67; PULSE 74; RESP 20; TEMP 37.3; O2SAT 100
[2021-05-31] MEDS: Heparin Sodium,Porcine 5,000 UNIT/ML VIAL 5000 UNIT SUBCUT ×3 (05:31→21:22)
[2021-05-31 06:48] LABS: Anion Gap 12 (12-20); Blood Urea Nitrogen 30 mg/dL (9-16); Calcium 8.6 mg/dL (8.4-10.2); Carbon Dioxide 21 mmol/L (22-29); Chloride 116 mmol/L (96-108); Creatinine Clr Calc Pharmacy 38.6; Estimated Glomerular Filt Rate 49; Glucose Random 111 mg/dL (60-115); Potassium 3.5 mmol/L (3.3-5.1); Sodium 145 mmol/L (135-145)
[2021-05-31 07:20] VITALS: BP 115/51; PULSE 74; RESP 16; TEMP 37.1; O2SAT 100
--- NOTE | 2021-05-31 09:17 | P.CDIC_ITS ---
CDI Concurrent Query Documentation Clarification: PHYSICIAN'S DOCUMENTATION REQUEST Date of Query: 05/31/2118 Patient Name: Timothy Sneed Admit Date: 05/22/21 Dear Doctor, A review of the medical record indicates additional documentation may be indicated. Please review below and update the documentation accordingly. Risk Factors/Clinical Indicators/Treatments Wound assessment: 05/29 - Pressure Injury bilateral buttocks Stage II Triad dressing. Based on the above, could you please provide, in the Progress Notes, further information regarding the ulcer/wound: * Location of the ulcer/wound, including laterality * Pressure (decubitus) ulcer/Injury: * If a pressure ulcer/injury, please also include the stage* of the ulcer: * Stage 1 * Stage 2 * Stage 3 * Unable to determine *Source: National Pressure Ulcer Advisory Panel (NPUAP) Use of terms such as suspected, likely, concern for, or probable (associated with a specific diagnosis that is being evaluated, monitored, or treated as if it exists) are acceptable and can be coded in the inpatient setting, when d ocumented at the time of discharge. Thank you, Ambreen Packer [facility], CDIS Extension: [phone] Please use your independent medical judgment in providing your response. THIS QUERY IS PART OF THE PERMANENT MEDICAL RECORD Provider Response: Other Other Diagnosis: Pressure injury bilateral buttock stage II
--- NOTE | 2021-05-31 09:17 | MHC.CDI.CONC ---
CDI Concurrent Query Documentation Clarification: PHYSICIAN'S DOCUMENTATION REQUEST Date of Query: 05/31/21 0918 Patient Name: Timothy Sneed Admit Date: 05/22/21 Dear Doctor, A review of the medical record indicates additional documentation may be indicated. Please review below and update the documentation accordingly. Risk Factors/Clinical Indicators/Treatments Wound assessment: 05/29 - Pressure Injury bilateral buttocks Stage II Triad dressing. Based on the above, could you please provide, in the Progress Notes, further information regarding the ulcer/wound: Location of the ulcer/wound, including laterality Pressure (decubitus) ulcer/Injury: If a pressure ulcer/injury, please also include the stage* of the ulcer: Stage 1 Stage 2 Stage 3 Unable to determine *Source: National Pressure Ulcer Advisory Panel (NPUAP) Use of terms such as suspected, likely, concern for, or probable (associated with a specific diagnosis that is being evaluated, monitored, or treated as if it exists) are acceptable and can be coded in the inpatient setting, when documented at the time of discharge. Thank you, Ambreen Packer [facility], CDIS Extension: [phone] Please use your independent medical judgment in providing your response. THIS QUERY IS PART OF THE PERMANENT MEDICAL RECORD Provider Response: Other Other Diagnosis: Pressure injury bilateral buttock stage II
[2021-05-31] MEDS: Carbidopa/Levodopa 25/100 TABLET 1 TAB PO ×4 (09:24→21:22)
[2021-05-31] MEDS: Aspirin Enteric Coated 81 MG TABLET.DR PO (09:24)
[2021-05-31] MEDS: amantadine HCL 100 MG CAPSULE PO ×2 (09:24→21:28)
[2021-05-31] MEDS: calcitrioL 0.25 MCG CAPSULE PO (09:24)
[2021-05-31] MEDS: 0.9 % Sodium Chloride Flush 3 ML SYRINGE IVFLUSH ×3 (09:25→21:25)
--- NOTE | 2021-05-31 11:25 | MHC.CM.PN ---
There are no beds at [facility], Patient/family's first choice SNF.CM spoke with Daughter/HCP/Xenia @ [phone], who's next choice of facilities is [facility]. CM has extended referrals and await a bed offer.
[2021-05-31 11:44] VITALS: BP 106/58; PULSE 80; RESP 20; TEMP 37.1; O2SAT 99
--- NOTE | 2021-05-31 12:44 | MHC.SLORD ---
Speech Language Pathology Order Status: Attempted to see Pt to re-assess for advancement to thin liquids, per MD specific request. Pt was sleeping soundly did not rouse to name, sternal rub. MD notified by secure text, will re-attempt tomorrow.
--- NOTE | 2021-05-31 13:23 | MHC.CLN ---
F/U PO INTAKE VARIABLE DIET RX: PUREED WITH NT LIQ-APPROPRIATE PETROLEUM PLANT OPERATOR FOLLOWING FOR APPROPRIATE DIET CONSISTENCY PT RECEIVING ENSURE BID TO INCREASE KCALS AND PROVIDES 700KCALS, 40G PROTEIN CONITNUE TO MONITOR PO INTAKE CLOSELY
[2021-05-31 15:58] VITALS: BP 99/58; PULSE 91; TEMP 37.6; O2SAT 99
--- NOTE | 2021-05-31 16:00 | HO.PM.IMPN ---
Subjective Subjective Date of Service: 05/31/21 Interval History: Offers no acute complaints, wants to go home, tolerating diet, no acute overnight events. Review of Systems Review of Systems: Yes all other systems are reviewed and are negative Physical Exam Vital Signs: Vital Signs: Last Vital Signs Temp 99.6 F 05/31/21 15:58 Pulse 91 05/31/21 15:58 Resp 20 05/31/21 11:44 BP 99/58 L 05/31/21 15:58 Pulse Ox 99 05/31/21 15:58 BMI result Body Mass Index 19.4 Gen: awake, alert in NAD HEENT: scle ra anicteric, mois t mucus membranes Neck: supple, no J VD Lungs: clear to auscultation bila terally Heart: reg ular rate and rhyt hm, no murmurs Abd : soft, non-tender , non-distended Ex t: no edema Skin: warm/well-perfused Neuro:? Awake clif rt answering quest ions appropriately Psych:? No behavi oral issues Objective Data Active Medications Acetaminophen (Acetaminophen 325 Mg Tablet) 650 mg PO Q6H PRN PRN Reason: Pain, Mild (Pain Scale 1-3) Last Admin: 05/24/21 16:29 Dose: 650 mg Documented by: IRENE Amantadine HCl (Amantadine Hcl 100 Mg Capsule) 100 mg PO BID [facility] Last Admin: 05/31/21 09:24 Dose: 100 mg Documented by: IRENE Aspirin (Aspirin Enteric Coated 81 Mg Tablet.) 81 mg PO DAILY [facility] Last Admin: 05/31/21 09:24 Dose: 81 mg Documented by: IRENE Calcitriol (Calcitriol 0.25 Mcg Capsule) 0.25 mcg PO DAILY [facility] Last Admin: 05/31/21 09:24 Dose: 0.25 mcg Documented by: IRENE Carbidopa/Levodopa (Carbidopa/Levodopa 25/100 Tablet) 1 tab PO QID [facility] Last Admin: 05/31/21 14:31 Dose: 1 tab Documented by: IRENE Heparin Sodium (Porcine) (Heparin Sodium,Porcine 5,000 Unit/Ml Vial) 5,000 unit SUBCUT Q8H [facility] Last Admin: 05/31/21 14:31 Dose: 5,000 unit Documented by: HO.KODOSOB Multivitamins/Vitamin C (Multivitamin Tablet) 1 tab PO BEDTIME [facility] Last Admin: 05/30/21 22:04 Dose: 1 tab Documented by: CLEMENTE Pharmacy Consult (Consult Rx Perform Med Rec) 1 each MISCELLANE ONCE PRN PRN Reason: Consult order Sodium Chloride (0.9 % Sodium Chloride Flush 3 Ml Syringe) 3 ml IVFLUSH QSHIFT [facility] Last Admin: 05/31/21 09:25 Dose: 3 ml Documented by: IRENE Labs CBC & Chem 7: 05/25/21 09:17 05/31/21 06:02 Labs: Laboratory Results - last 24 hr 05/31/21 06:02 Anion Gap 12 Estim Creat Clear Calc 38.6 Estimated GFR 49 Random Glucose 111 Calcium 8.6 Microbiology Microbiology Results: Microbiology 05/26/21 07:03 Blood Culture - Final Blood - Venous No growth after 5 days. 05/26/21 07:13 Blood Culture - Final Blood - Venous No growth after 5 days. Assessment and Plan (1) Hypernatremia: Status: Acute (2) Acute kidney injury superimposed on chronic kidney disease: Status: Acute (3) Acute dehydration: Status: Acute (4) Orthostatic hypotension: Status: Acute (5) Parkinson disease: Status: Acute (6) Hypertension: Status: Acute Assessment and Plan: 75yo M with advanced Parkinson's disease admitted after syncopal episode while toileting, found to have MAEGAN/CKD # hyperNa - hypernatremia resolved Na 145 , - encourage PO fluids # MAEGAN/CKD3 - improved , creatinine at baseline dc IV fluids, follow BMP # Parkinson's disease with behavioral disturbance - continue amantadine + Sinemet ? No behavioral issues in last 24 hours, Seroquel discontinued # HTN - soft BP, lisinopril discontinue # VTE ppx - UFH # mild pr/lei malnutrition - continue Ensure # dispo - SNF placement-social work program coordinator making arrangement for placement Quality Stroke Does the patient have a stroke diagnosis?: No VTE Prior VTE?: No VTE Risk Level:: Medical - moderate - high VTE Device Contraindication: Treatment Not Indicated VTE Drug Contraindication: N/A - Med Ordered
[2021-05-31 20:00] VITALS: BP 122/68; PULSE 88; RESP 16; TEMP 37.4; O2SAT 100
[2021-05-31] MEDS: Multivitamin TABLET 1 TAB PO (21:21)
[2021-06-01] VITALS: BP 118/52; PULSE 72; RESP 18; TEMP 37; O2SAT 96
[2021-06-01 04:00] VITALS: BP 128/68; PULSE 76; RESP 20; TEMP 36.9; O2SAT 97
[2021-06-01] MEDS: Heparin Sodium,Porcine 5,000 UNIT/ML VIAL 5000 UNIT SUBCUT ×2 (05:40→12:38)
[2021-06-01 06:52] VITALS: BP 149/90; PULSE 99; RESP 19; TEMP 36.6; O2SAT 92
[2021-06-01 06:58] LABS: Anion Gap 11 (12-20); Blood Urea Nitrogen 28 mg/dL (9-16); Calcium 8.4 mg/dL (8.4-10.2); Carbon Dioxide 22 mmol/L (22-29); Chloride 115 mmol/L (96-108); Creatinine Clr Calc Pharmacy 37.5; Estimated Glomerular Filt Rate 47; Glucose Random 97 mg/dL (60-115); Potassium 3.6 mmol/L (3.3-5.1); Sodium 144 mmol/L (135-145)
[2021-06-01] MEDS: 0.9 % Sodium Chloride Flush 3 ML SYRINGE IVFLUSH (09:55)
[2021-06-01] MEDS: calcitrioL 0.25 MCG CAPSULE PO (09:59)
[2021-06-01] MEDS: Aspirin Enteric Coated 81 MG TABLET.DR PO (09:59)
[2021-06-01] MEDS: Carbidopa/Levodopa 25/100 TABLET 1 TAB PO ×2 (09:59→12:35)
[2021-06-01] MEDS: amantadine HCL 100 MG CAPSULE PO (09:59)
--- NOTE | 2021-06-01 10:19 | MHC.CM.PN ---
Patient has been medically cleared for dc to [facility]/SNF today. Patient will dc to [facility] today at 1PM, via [facility]. HCP/Daughter/Xenia at [phone] is aware of and in agreement with the dc plan.IMM addressed over the phone with Xenia and the original will be mailed certified letter to her and a copy has been placed on the chart.
--- NOTE | 2021-06-01 10:45 | MHC.SL.SWA ---
Speech Pathologist Impression: Oralpharyngeal Dysphagia Risk of Aspiration Due to: Poor PO Intake Dysphasia Diet Status: Downgrade Liquid Consistency and Strategies for Safe Swallow: Liquid Intake Recommendation: [place] Thick Liquid Intake Strategies: Small Sips Solid Food Consistency: Dietary Recommendations: Pureed (NDD1) Additional Modifications to Solid Foods: Oral Medication Intake: Crushed with Puree Compensatory Strategies and Precautions to be Taken for Safe Swallow: Sitting Upright (90 deg) No Straw Liquids from Spoon Alternate Liquids/Solids Oral Check Supervision While Eating and Drinking for Safe Swallow: Total Supervision (1:1) Foods to Avoid: Foods with different consistencies, difficult to chew foods. Swallowing Recommended Treatments: Compens. Strategy Educat. Recommendation for Speech: Inpatient Speech Therapy Comment: Pt presents with oralpharyngeal dysphagia due to reduced strength, rom, volitional control of oral mechanism secondary to advanced Parkinson's Disease. Pt currently on Puree (NDD1) w/ [place] Thick liquid. On trials of thin liquid today, pt had clinical signs of aspiration (coughing) on one trial administered by tsp. On subsequent trials, oral mgt. of bolus was variable, however no additional clinical s/s of aspiration. Pt became somnambulant and trials of puree were not attempted. Recommend Pt continue w/ [place] Thick liquids, however can have tsps of thin liquids (e.g. water) to supplement under strict supervision w/monitoring for clinical signs of aspiration. Recommend continue diet of Puree (NDD1). Assess Pt's readiness to eat at all meals, e.g. Pt needs to be alert, well positioned in bed, engaged in the meal. Please, no straws. MD notified of recommendations by secure text. Frequency/Duration: CHILD NUTRITION MANAGER will follow M-F while PT is admitted Date Range for Service Req: Timeline to reassess: Metal Filer Clinican/Clinical Fellow: No Supervisory Statement: I have reviewed and agree with the student/clinical fellow's documentation: N/A Speech Language Pathologist: Lauryn Boles M.A., CCC-CHILD NUTRITION MANAGER
[2021-06-01 10:54] VITALS: BP 98/52; PULSE 91; RESP 20; TEMP 36; O2SAT 96
[2021-06-01 10:54] LABS: COVID-19 Test Negative (Negative)
--- NOTE | 2021-06-01 11:25 | PM.DS ---
DS: Providers Provider Date of Service: 06/01/21 Date of admission: 05/22/21 12:08 Primary care physician: Lis Cho MD DS: Diagnosis Discharge Diagnosis (1) Hypernatremia: Status: Acute (2) Acute kidney injury superimposed on chronic kidney disease: Status: Acute (3) Acute dehydration: Status: Acute (4) Orthostatic hypotension: Status: Acute (5) Parkinson disease: Status: Acute (6) Hypertension: Status: Acute DS: Summary Hospital Course Hospital Course: Chief Complaint:? syncope ?75-year-old male presents from home after what is described as a syncopal episode after toileting.? Noted to be somewhat confused and not responding appropriately.? Per EMS, pre-hospital BP's were consistent with? orthostatic hypotension.? In the emergency room, his blood pressure responded to IV fluids.? A urine was sent given his past history of recurrent UTIs; this revealed active sediment consistent with UTI. ? 75yo M with advanced Parkinson's disease admitted after syncopal episode while toileting, found to have MAEGAN/CKD, hypernatremia and orthostatic hypotension patient treated with IV fluid , hydrochlorothiazide and lisinopril were discontinued, sodium normalized and acute kidney injury resolved patient has been tolerating diet fairly well had no further episodes of syncope he has been continued on home medication amantadine and Sinemet, he was noted to have behavioral issues therefore was started on Seroquel but was subsequently discontinued due to hypotension and sedation, patient was also noted to have mild protein calorie malnutrition therefore placed on Ensure Urine and blood culture showed no growth, since patient is awake alert tolerating diet he has been discharged to rehab facility on all home medication except lisinopril and hydrochlorothiazide has been discontinued due to hypotension Time Spent with Patient Time attestation: Total time spent providing and/or coordinating discharge services: Discharge coordination time: Greater than 30 minutes Quality: Stroke Does the patient have a stroke diagnosis?: No Physical Exam Vital Signs: Vital Signs: Last Vital Signs Temp 96.8 F 06/01/21 10:54 Pulse 91 06/01/21 10:54 Resp 20 06/01/21 10:54 BP 98/52 L 06/01/21 10:54 Pulse Ox 96 06/01/21 10:54 BMI result Body Mass Index 19.4 ? Gen: awake, aler t in NAD HEENT: sc king anicteric, mo ist mucus membrane s Neck: supple, no JVD Lungs: clear to auscultation bi laterally Heart: r egular rate and rh ythm, no murmurs A bd: soft, non-tend er, non-distended Ext: no edema Skin : warm/well-perfus ed Neuro:? Awake a lert ,hand tremors Psych:? No behavi oral issues DS: Data Data Completed and Pending Labs on day of discharge: Laboratory Results - last 24 hr 06/01/21 06/01/21 06:25 09:53 Sodium 144 Potassium 3.6 Chloride 115 H Carbon Dioxide 22 Anion Gap 11 L BUN 28 H Creatinine 1.46 H Estim Creat Clear Calc 37.5 Estimated GFR 47 Random Glucose 97 Calcium 8.4 COVID-19 ([facility]) Negative COVID-19 Clin Com See Note Discharge Plan Discharge Patient Disposition: Xfer SNF Discharge Diagnosis: Hypernatremia Acute on chronic kidney disease stage 3 Syncope Orthostatic hypotension [facility] Week Lis Cho MD [Primary Care Provider] - 1 Week Discharge Medications: Continued amantadine HCl 100 mg tablet 1 tab PO BID RF: 0 carbidopa-levodopa 25-100 mg tablet 1 tab PO QID RF: 0 calcitriol 0.25 mcg capsule 1 cap PO DAILY RF: 0 multivitamin Tablet 1 tab PO BEDTIME RF: 0 aspirin 81 mg Tablet,Delayed Release (Dr/Ec) 81 mg PO DAILY RF: 0 vitamin A-vitamin C-vit E-min Tablet 1 tab PO DAILY RF: 0 Discontinued lisinopril 5 mg tablet 1 tab PO DAILY RF: 0 hydrochlorothiazide 25 mg tablet 1 tab PO DAILY RF: 0 Discharge Orders: Discharge Order (Routine); Ordered 06/01/21 Ordered By: Teresa Stephenson Diet: advance to usual diet Activity on Discharge: As tolerated Stand Alone Forms: Patient Portal Discharge page Activity Restrictions/Additional Instructions: Wound care instructions: Cleanse bilateral leg wound with wound cleanser then apply Woundres gel to wound beds and cover with foam dressing. Apply Woundres gel to right great toe cover with large bandaid. Apply EPC barrier cream to buttocks and coccyx. Care Plan Goals: Acute kidney injury resolved, hypernatremia due to decreased by mouth intake improved, hydrochlorothiazide discontinued BP stable mild protein calorie malnutrition give Ensure Follow BMP 1 week Health Concerns: Parkinson's disease/dysphagia continue diet as before add Ensure can b.i.d. take all medications as prescribed hold lisinopril and hydrochlorothiazide Plan of Treatment: Follow-up with PCP in 1 week Assessment: per discharge summary
== END 2021-06-01 13:11 | disposition skilled nursing facility (03) | DRG 683 ==
LOC: HO.ED 09:30 → HO.EDOVER 12:21 → HO.IMC 05-23 01:09
PROVIDERS: Family Medicine; Admitting Provider Hospitalist; Emergency Provider Emergency Medicine; PCP Internal Medicine; Visit Provider Hospitalist
DX: N17.9 Acute kidney failure, unspecified (principal); N39.0 Urinary tract infection, site not specified; E87.0 Hyperosmolality and hypernatremia; E44.1 Mild protein-calorie malnutrition; Z68.1 Body mass index [BMI] 19.9 or less, adult; G20 Parkinson's disease; I12.9 Hypertensive chronic kidney disease with stage 1 through stage 4 chronic kidney disease, or unspecified chronic kidney disease; N18.30 Chronic kidney disease, stage 3 unspecified; E86.0 Dehydration; L89.322 Pressure ulcer of left buttock, stage 2; L89.312 Pressure ulcer of right buttock, stage 2; I95.1 Orthostatic hypotension; Z87.440 Personal history of urinary (tract) infections; Z20.822 Contact with and (suspected) exposure to COVID-19; Z87.891 Personal history of nicotine dependence; Z79.82 Long term (current) use of aspirin; Z79.899 Other long term (current) drug therapy
CPT/HCPCS: 36415; 71045; 80048; 80053; 80076; 81001; 82607; 82746; 83605; 83690; 83735; 84484; 85025; 87040; 87086; 87635; 92610; 93005; 96361; 96365; 97162; 97163; 99285; J0696